=== PATIENT | female | born 1950 | race Caucasian/White ===

== ENCOUNTER → 2017-06-22 | Outpatient (CLI) | payer MEDICARE, OTHER ==
[~2017-06-22] MED LIST: ASPI-999 PO; CETI10TA20 PO
== END ==
LOC: RAD 06-16 10:31
PROVIDERS: ATTEND Obstetrics & Gynecology
DX: Z12.31 Encounter for screening mammogram for malignant neoplasm of breast (principal)
CPT/HCPCS: 77067

== ENCOUNTER → 2018-06-29 | Outpatient (CLI) | payer MEDICARE, OTHER ==
--- NOTE | 2018-07-01 19:15 | Diagnostic Imaging Report ---
The current study was also evaluated with a Computer Aided Detection (CAD) system. 3-D tomosynthesis was also performed and reviewed. INDICATION: Digital mammogram bilateral screening. This study was compared to the prior exams of 06/22/2017, 06/15/2016 and 05/13/2015. At this time, there are no current complaints. FINDINGS: The fibroglandular tissue in both breasts is heterogeneously dense. This does limit the sensitivity of this exam. Overall, there does not appear to have been any significant change when compared to the prior study. No primary or secondary sign of malignancy is noted. 3D tomographic images fail to show any sign of malignancy. IMPRESSION: There is no radiographic evidence for malignancy. ACR BI-RADS Category 1: Negative. Result letter will be mailed to the patient. Note: At least 10% of breast cancer is not imaged by mammography. Dictated by: Dictated on workstation # [id number]
== END ==
LOC: RAD 14:38
PROVIDERS: ATTEND Obstetrics & Gynecology
DX: Z12.31 Encounter for screening mammogram for malignant neoplasm of breast (principal)
CPT/HCPCS: 77067

== ENCOUNTER → 2018-06-30 | Outpatient (CLI) | payer MEDICARE, OTHER ==
--- NOTE | 2018-06-30 09:36 | Diagnostic Imaging Report ---
DEXA scan. INDICATION: Screening for osteoporosis. There are no prior studies available for comparison. FINDINGS: The bone mineral density of the hips and spine was measured. The T score for the spine is -2.2. The T score for the left hip is -2.0. These values do indicate osteopenia. However, the T score for the right hip is -2.7. This value falls within the range of osteoporosis. IMPRESSION: There is osteoporosis of the right hip and osteopenia of the left hip and spine. Dictated by: Dictated on workstation # [id number]
== END ==
LOC: RAD 08:11
PROVIDERS: ATTEND Obstetrics & Gynecology
DX: Z13.820 Encounter for screening for osteoporosis (principal); M81.0 Age-related osteoporosis without current pathological fracture; M85.89 Other specified disorders of bone density and structure, multiple sites
CPT/HCPCS: 77080

== ENCOUNTER → 2018-10-10 | Outpatient (CLI) | payer MEDICARE, OTHER ==
[~2018-10-10] MED LIST changes: +RT-ALBUTEROL SULF 2.5 MG/3 ML PRE-MIX VIAL INH ONE; +RT-ALBUTEROL SULF 2.5 MG/3 ML PRE-MIX VIAL ONE
--- NOTE | 2018-10-10 15:34 | Diagnostic Imaging Report ---
INDICATION: 40 pack year history of smoking. COMPARISON: None. TECHNIQUE: Routine low-dose noncontrast CT of the chest was performed per department screening protocol. FINDINGS: Several small micronodules are identified within the lateral segment of the right middle lobe. Largest of these measures approximately 5 mm in diameter (image 204, series 2). 4 mm juxtapleural micronodular density is also noted within the anterolateral margins of the right upper lobe (image 132, series 2). There is mild air trapping consistent with background of emphysematous disease. There is no focal consolidation, large effusion, nor pneumothorax. Evaluation of cardiomediastinal structures demonstrates normal heart size. There is moderate calcified aortic and coronary atherosclerosis. Note is also made of aneurysmal dilatation of the ascending thoracic aorta, as it measures approximately 4.1 cm in diameter. There is also focal hypodensity peripheral to the wall of the thoracic aorta laterally on the left at the aortic arch suspicious for possible pseudoaneurysm. It measures approximately 1.6 cm at its base (image 106, series 2). No pathologically enlarged or morphologically abnormal adenopathy is seen within the mediastinum, mason, nor axilla. Bony structures show no acute abnormalities. No lytic or blastic osseous lesions are seen. Sternotomy wires are noted. Included portions of the abdomen are unremarkable. IMPRESSION: 1. Multiple small micronodules within the right upper and right middle lobes, largest of which measures approximately 5 mm in diameter. Continued followup with annual low dose CT chest is recommended. 2. Background of mild emphysematous disease. 3. 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 Followup with postcontrast CTA chest is recommended for further characterization. LungRads category: 1-S Dictated by: Dictated on workstation # [id number]
== END ==
LOC: RT 12:55
PROVIDERS: ATTEND Nurse Practitioner Family
DX: J44.9 Chronic obstructive pulmonary disease, unspecified (principal); J30.9 Allergic rhinitis, unspecified; R06.02 Shortness of breath; Z87.891 Personal history of nicotine dependence
CPT/HCPCS: 94060; 94726; 94729

== ENCOUNTER → 2019-04-03 | Outpatient (CLI) | payer MEDICARE, OTHER ==
[~2019-04-03] MED LIST changes: +HOLD METFORMIN - RECEIVED CONTRAST 20 ML VIAL IV SCH; +IOHEXOL 350 MG/ML 100 ML (OMNIPAQUE 350) VIAL IV ONE; +NS 100 ML (IVPB) BAG IV ONE; -RT-ALBUTEROL SULF 2.5 MG/3 ML PRE-MIX VIAL INH ONE; -RT-ALBUTEROL SULF 2.5 MG/3 ML PRE-MIX VIAL ONE
[2019-04-03 11:50] LABS: BUN/CREATININE RATIO 11; CREATININE SERUM 0.82 MG/DL (0.60-1.30); GFR ESTIMATED > 60
--- NOTE | 2019-04-03 18:22 | Diagnostic Imaging Report ---
PROCEDURE: CT chest with contrast only. TECHNIQUE: Multiple contiguous axial images were obtained through the chest after administration of intravenous contrast. Auto Exposure Controls were utilized during the CT exam to meet ALARA standards for radiation dose reduction. DATE: April 03, 2019. COMPARISON: CT chest October 10, 2018. INDICATION: 68-year-old female, shortness of breath. History of COPD and asthma. Evaluation for thoracic aortic aneurysm. FINDINGS: There is tree-in-bud nodularity in the right middle lobe on axial image 41 and adjacent sequential images. This is present on October 10, 2018 and is essentially unchanged. There is no new or enlarging pulmonary nodule. There is no additional focal airspace consolidation. There is no pneumothorax. There is no pleural effusion. The central airways are patent. The aorta at the level of the aortic root measures up to approximately 3.9 x 3.4 cm in diameter. The proximal ascending thoracic aorta measures 3.5 x 3.7 cm in diameter. The distal ascending thoracic aorta measures approximately 3.7 x 3.4 cm in diameter. The proximal descending thoracic aorta measures 3.0 x 3.0 cm in diameter. The distal descending thoracic aorta measures 2.7 x 2.5 cm in diameter. There is no evidence of aortic dissection. There is no evidence of acute aortic injury. There are atherosclerotic calcifications. The celiac axis and superior mesenteric arteries are widely patent. The bilateral renal arteries are patent. The visualized segments of the abdominal aorta are unremarkable in caliber. There is no identified abnormally enlarged mediastinal, hilar, or axillary lymph node which meets CT size criteria for adenopathy. There are low-attenuation nodules in the right lobe of the thyroid measuring up to maximally 12 mm in size on axial image 12. The visualized segments of the upper abdomen are unremarkable in appearance. There are multilevel advanced degenerative changes of the spine. There are median sternotomy wires. There is partially imaged hardware at the level of the lower cervical spine. There is no identified acute bony abnormality. IMPRESSION: CT CHEST. 1. No identified acute cardiopulmonary abnormality. 2. Atherosclerotic disease with slight prominence of the thoracic aorta with measurements as above. Findings do not meet threshold criteria for diagnosis of aneurysm. No evidence of aortic dissection. 3. Stable tree-in-bud nodularity in the right middle lobe most likely relating to sequela of prior process spreading via endobronchial means which is most likely an infectious bronchiolitis or possibly aspiration. Dictated by: Dictated on workstation # [id number]
== END ==
LOC: RAD 11:20
PROVIDERS: ATTEND Nurse Practitioner Family
DX: J44.9 Chronic obstructive pulmonary disease, unspecified (principal); I70.0 Atherosclerosis of aorta; J30.9 Allergic rhinitis, unspecified; R91.1 Solitary pulmonary nodule; Z87.891 Personal history of nicotine dependence
CPT/HCPCS: 36415; 71260; 82565; 84520

== ENCOUNTER 2019-05-02 09:13 | Outpatient (CLI) | payer MEDICARE, OTHER ==
[~2019-05-02] VITALS: Ht 172.7 cm; Wt 61.5 kg
[~2019-05-02 09:13] MED LIST changes: -HOLD METFORMIN - RECEIVED CONTRAST 20 ML VIAL IV SCH; -IOHEXOL 350 MG/ML 100 ML (OMNIPAQUE 350) VIAL IV ONE; -NS 100 ML (IVPB) BAG IV ONE
[2019-05-02] MEDS ORDERED: ZOLP5TAB PO (12:25)
[2019-05-02] MEDS ORDERED: ESTR42.52 VG (12:25)
[2019-05-02] MEDS ORDERED: MONT10TA24 PO (12:25)
== END 2019-05-02 12:30 | disposition home or self-care (01) ==
LOC: PREOP 09:13
PROVIDERS: ATTEND Internal Medicine Critical Care Medicine
DX: Z01.818 Encounter for other preprocedural examination (principal)

== ENCOUNTER 2019-05-04 07:00 | Day surgery (SDC) | payer MEDICARE, OTHER ==
[~2019-05-04] VITALS: Ht 172.7 cm; Wt 61.5 kg
[2019-05-04] VITALS (19 sets, daily range): BP systolic 108–153; BP diastolic 55–94
[~2019-05-04 07:00] MED LIST changes: +ESTR42.52 VG; +MONT10TA24 PO; +NS IV 500 ML 500 ML ONE; +ZOLP5TAB PO
[2019-05-04] MEDS ORDERED: LIDOCAINE JELLY 2% 6 ML SYRINGE MM ONE (07:01)
[2019-05-04] MEDS ORDERED: LIDOCAINE PF 1% 2 ML VIAL IJ ONE (07:01)
[2019-05-04] MEDS ORDERED: LIDOCAINE PF 2% 5 ML (XYLOCAINE) VIAL INJ ONE (07:01)
[2019-05-04] MEDS ORDERED: NS IV 500 ML 500 ML IV PRN (07:05)
[2019-05-04] MEDS ORDERED: fentaNYL INJECTION 100 MCG/2 ML AMP IVP ONE (07:15)
[2019-05-04] MEDS ORDERED: MIDAZOLAM 2 MG/2 ML (VERSED) VIAL IVP ONE (07:15)
--- OUTSIDE RECORDS SUMMARY | 2019-05-04 07:20 | XMS REPORT | Continuity of Care Document ---
Author Organization Unknown Address Unknown Phone Unavailable Allergies Active Description Code Type Severity Reaction Onset Reported/Identified Relationship to Patient Clinical Status Yes NO KNOWN DRUG ALLERGIES UNKNOWN NO KNOWN DRUG ALLERG Yes NO KNOWN DRUG ALLERGIES UNKNOWN UNKNOWN Yes No Known Drug Allergies [id number] Drug Allergy Unknown N/A 05/02/2019 Medications Medication Packaging Start Date Stop Date Route Dosage Sig KETOROLAC VIAL INJ 30 MG/CC (TORADOL VIAL) MG 03/01/2019 03/01/2019 [id number] Problems Date Dx Coded Attending Type Code Diagnosis Diagnosed By 11/22/2009 Ot 721.0 12/13/2009 Ot 721.0 10/05/2014 ONEAL YORK MD Ot 722.4 CERVICAL DISC DEGEN 10/05/2014 ONEAL YORK MD Ot V58.69 OT MED,LT,CURRENT USE 11/14/2014 ONEAL YORK MD Ot 722.51 11/14/2014 ONEAL YORK MD, Ot V58.69 05/13/2015 Ot V76.12 05/13/2015 Ot V76.12 05/13/2015 Ot V76.12 05/13/2015 RENATA LIAO MD Ot 793.89 05/13/2015 RENATA LIAO MD Ot V76.12 05/13/2015 MAT DOOMER S Ot 401.9 05/13/2015 PARENETTA DO, OMER S Ot 427.31 05/13/2015 PARENETTA DO, OMER S Ot 441.2 05/13/2015 RENATA LIAO MD Ot 793.80 05/13/2015 RENATA LIAO MD Ot V76.12 05/13/2015 ONEAL YORK MD Ot 721.0 05/13/2015 ONEAL YORK MD Ot 721.2 05/13/2015 ONEAL YORK MD Ot 722.51 05/13/2015 ONEAL YORK MD Ot V58.69 05/28/2015 RENATA LIAO MD, Ot V76.12 06/04/2015 RENATA LIAO MD, Ot V76.12 06/15/2016 Ot V76.12 OTH SCREEN MAMMO- MALIGN NEOPLASM OF ISSA 06/15/2016 Ot V76.12 OTH SCREEN MAMMO- MALIGN NEOPLASM OF ISSA 06/15/2016 RENATA LIAO MD Ot 793.89 OTH (ABN) FINDINGS ON RADIOLOGICAL EXAMI 06/15/2016 RENATA LIAO MD, Ot V76.12 OTH SCREEN MAMMO-MALIGN NEOPLASM OF ISSA 06/15/2016 PAONI DO OMER S Ot 401.9 HYPERTENSION NOS 06/15/2016 PAONI DO OMER S Ot 427.31 ATRIAL FIBRILLATION 06/15/2016 PARENETTA DO OMER S Ot 441.2 THORACIC AORTIC ANEURYSM 06/15/2016 RENATA LIAO MD Ot 793.80 UNSPEC ABNORMAL MAMMOGRAM 06/15/2016 RENATA LIAO MD, Ot V76.12 OTH SCREEN MAMMO-MALIGN NEOPLASM OF ISSA 06/15/2016 ONEAL YORK MD Ot 721.0 CERVICAL SPONDYLOSIS 06/15/2016 ONEAL YORK MD Ot 721.2 THORACIC SPONDYLOSIS 06/15/2016 ONEAL YORK MD Ot 722.51 THORACIC DISC DEGEN 06/15/2016 ONEAL YORK MD Ot V58.69 OT MED,LT,CURRENT USE 06/15/2016 RENATA LIAO MD, Ot V76.12 OTH SCREEN MAMMO-MALIGN NEOPLASM OF ISSA 06/15/2016 RENATA LIAO MD, Ot V76.12 OTH SCREEN MAMMO-MALIGN NEOPLASM OF ISSA 06/15/2016 RENATA LIAO MD, Ot Z12.31 ENCNTR SCREEN MAMMOGRAM FOR MALIGNANT NE 06/16/2016 RENATA LIAO MD, Ot Z12.31 ENCNTR SCREEN MAMMOGRAM FOR MALIGNANT NE 06/16/2016 RENATA LIAO MD, Ot Z12.31 ENCNTR SCREEN MAMMOGRAM FOR MALIGNANT NE 07/08/2016 YANNI MD, RENATA G Ot Z12.31 ENCNTR SCREEN MAMMOGRAM FOR MALIGNANT NE 07/15/2016 YVETTE FAYE, LUKASZ Weems Ot Z01.818 ENCOUNTER FOR OTHER PREPROCEDURAL EXAMIN 07/15/2016 LUKASZ CRAWFORD MD Ot Z12.11 ENCOUNTER FOR SCREENING FOR MALIGNANT NE 07/17/2016 YVETTE FAYE, LUKASZ Weems Ot Z01.818 ENCOUNTER FOR OTHER PREPROCEDURAL EXAMIN 07/17/2016 LUKASZ CRAWFORD MD Ot Z12.11 ENCOUNTER FOR SCREENING FOR MALIGNANT NE 07/17/2016 Ot V76.12 OTH SCREEN MAMMO- MALIGN NEOPLASM OF ISSA 07/17/2016 Ot V76.12 OTH SCREEN MAMMO- MALIGN NEOPLASM OF ISSA 07/17/2016 RENATA LIAO MD Ot 793.89 OTH (ABN) FINDINGS ON RADIOLOGICAL EXAMI 07/17/2016 RENATA LIAO MD, Ot V76.12 OTH SCREEN MAMMO-MALIGN NEOPLASM OF ISSA 07/17/2016 PAOMER ANDERS DO S Ot 401.9 HYPERTENSION NOS 07/17/2016 OMER ZAMORA DO S Ot 427.31 ATRIAL FIBRILLATION 07/17/2016 OMER ZAMORA DO S Ot 441.2 THORACIC AORTIC ANEURYSM 07/17/2016 RENATA LIAO MD Ot 793.80 UNSPEC ABNORMAL MAMMOGRAM 07/17/2016 RENATA LIAO MD, Ot V76.12 OTH SCREEN MAMMO-MALIGN NEOPLASM OF ISSA 07/17/2016 ONEAL YORK MD Ot 721.0 CERVICAL SPONDYLOSIS 07/17/2016 ONEAL YORK MD Ot 721.2 THORACIC SPONDYLOSIS 07/17/2016 ONEAL YORK MD Ot 722.51 THORACIC DISC DEGEN 07/17/2016 ONEAL YORK MD Ot V58.69 OTH MED,LT,CURRENT USE 07/17/2016 RENATA LIAO MD, Ot V76.12 OTH SCREEN MAMMO-MALIGN NEOPLASM OF ISSA 07/17/2016 RENATA LIAO MD, Ot Z12.31 ENCNTR SCREEN MAMMOGRAM FOR MALIGNANT NE 07/17/2016 RENATA LIAO MD, Ot V76.12 OTH SCREEN MAMMO-MALIGN NEOPLASM OF ISSA 07/17/2016 RENATA LIAO MD, Ot Z12.31 ENCNTR SCREEN MAMMOGRAM FOR MALIGNANT NE 07/17/2016 YVETTE FAYE, LUKASZ Weems Ot K57.30 DVRTCLOS OF LG INT W/O PERFORATION OR AB 07/17/2016 LUKASZ CRAWFORD MD Ot Z12.11 ENCOUNTER FOR SCREENING FOR MALIGNANT NE 07/17/2016 YVETTE FAYE, LUKASZ Weems Ot Z86.010 PERSONAL HISTORY OF COLONIC POLYPS 07/20/2016 LUKASZ CRAWFORD MD Ot K57.30 DVRTCLOS OF LG INT W/O PERFORATION OR AB 07/20/2016 LUKASZ CRAWFORD MD Ot Z12.11 ENCOUNTER FOR SCREENING FOR MALIGNANT NE 07/20/2016 LUKASZ CRAWFORD MD Ot Z86.010 PERSONAL HISTORY OF COLONIC POLYPS 07/22/2016 LUKASZ CRAWFORD MD Ot K57.30 DVRTCLOS OF LG INT W/O PERFORATION OR AB 07/22/2016 LUKASZ CRAWFORD MD Ot Z12.11 ENCOUNTER FOR SCREENING FOR MALIGNANT NE 07/22/2016 LUKASZ CRAWFORD MD Ot Z86.010 PERSONAL HISTORY OF COLONIC POLYPS 06/08/2017 RENATA LIAO MD Ot Z12.31 ENCNTR SCREEN MAMMOGRAM FOR MALIGNANT NE 06/09/2017 RENATA LIAO MD Ot V76.12 OTH SCREEN MAMMO-MALIGN NEOPLASM OF ISSA 06/09/2017 RENATA LIAO MD Ot Z12.31 ENCNTR SCREEN MAMMOGRAM FOR MALIGNANT NE 06/09/2017 RENATA LIAO MD Ot Z12.31 ENCNTR SCREEN MAMMOGRAM FOR MALIGNANT NE 06/14/2017 Ot V76.12 OTH SCREEN MAMMO- MALIGN NEOPLASM OF ISSA 06/14/2017 RENATA LIAO MD Ot 793.89 OTH (ABN) FINDINGS ON RADIOLOGICAL EXAMI 06/14/2017 RENATA LIAO MD, Ot V76.12 OTH SCREEN MAMMO-MALIGN NEOPLASM OF ISSA 06/14/2017 PAONI DO, OMER S Ot 401.9 HYPERTENSION NOS 06/14/2017 PAONI DO OMER S Ot 427.31 ATRIAL FIBRILLATION 06/14/2017 PAONI DO OMER S Ot 441.2 THORACIC AORTIC ANEURYSM 06/14/2017 RENATA LIAO MD Ot 793.80 UNSPEC ABNORMAL MAMMOGRAM 06/14/2017 RENATA LIAO MD, Ot V76.12 OTH SCREEN MAMMO-MALIGN NEOPLASM OF ISSA 06/14/2017 ONEAL YORK MD Ot 721.0 CERVICAL SPONDYLOSIS 06/14/2017 ONEAL YORK MD Ot 721.2 THORACIC SPONDYLOSIS 06/14/2017 ONEAL YORK MD Ot 722.51 THORACIC DISC DEGEN 06/14/2017 ONEAL YORK MD Ot V58.69 OTH MED,LT,CURRENT USE 06/14/2017 RENATA LIAO MD, Ot V76.12 OTH SCREEN MAMMO-MALIGN NEOPLASM OF ISSA 06/14/2017 RENATA LIAO MD, Ot Z12.31 ENCNTR SCREEN MAMMOGRAM FOR MALIGNANT NE 06/14/2017 RENATA LIAO MD, Ot Z12.31 ENCNTR SCREEN MAMMOGRAM FOR MALIGNANT NE 06/16/2017 RENATA LIAO MD, Ot Z12.31 ENCNTR SCREEN MAMMOGRAM FOR MALIGNANT NE 06/22/2017 RENATA LIAO MD, Ot Z12.31 ENCNTR SCREEN MAMMOGRAM FOR MALIGNANT NE 06/22/2017 RENATA LIAO MD, Ot Z12.31 ENCNTR SCREEN MAMMOGRAM FOR MALIGNANT NE 07/15/2017 RENATA LIAO MD, Ot Z12.31 ENCNTR SCREEN MAMMOGRAM FOR MALIGNANT NE 06/28/2018 RENATA LIAO MD, Ot Z12.31 ENCNTR SCREEN MAMMOGRAM FOR MALIGNANT NE 06/28/2018 RENATA LIAO MD Ot 793.89 OT (ABN) FINDINGS ON RADIOLOGICAL EXAMI 06/28/2018 RENATA LIAO MD, Ot V76.12 OTH SCREEN MAMMO-MALIGN NEOPLASM OF ISSA 06/28/2018 PAONI OMER ALFARO S Ot 401.9 HYPERTENSION NOS 06/28/2018 OMER ZAMORA DO S Ot 427.31 ATRIAL FIBRILLATION 06/28/2018 OMER ZAMORA DO S Ot 441.2 THORACIC AORTIC ANEURYSM 06/28/2018 RENATA LIAO MD Ot 793.80 UNSPEC ABNORMAL MAMMOGRAM 06/28/2018 RENATA LIAO MD, Ot V76.12 OTH SCREEN MAMMO-MALIGN NEOPLASM OF ISSA 06/28/2018 ONEAL YORK MD Ot 721.0 CERVICAL SPONDYLOSIS 06/28/2018 ONEAL YORK MD Ot 721.2 THORACIC SPONDYLOSIS 06/28/2018 ONEAL YORK MD Ot 722.51 THORACIC DISC DEGEN 06/28/2018 ONEAL YORK MD Ot V58.69 OTH MED,LT,CURRENT USE 06/28/2018 RENATA LIAO MD, Ot V76.12 OTH SCREEN MAMMO-MALIGN NEOPLASM OF ISSA 06/28/2018 RENATA LIAO MD, Ot Z12.31 ENCNTR SCREEN MAMMOGRAM FOR MALIGNANT NE 06/28/2018 RENATA LIAO MD, Ot Z12.31 ENCNTR SCREEN MAMMOGRAM FOR MALIGNANT NE 06/28/2018 RENATA LIAO MD, Ot M81.0 AGE-RELATED OSTEOPOROSIS W/O CURRENT PAT 06/28/2018 RENATA LIAO MD, Ot Z12.31 ENCNTR SCREEN MAMMOGRAM FOR MALIGNANT NE 06/28/2018 RENATA LIAO MD, Ot M81.0 AGE-RELATED OSTEOPOROSIS W/O CURRENT PAT 07/01/2018 RENATA LIAO MD, Ot M81.0 AGE-RELATED OSTEOPOROSIS W/O CURRENT PAT 07/01/2018 RENATA LIAO MD, Ot M85.89 OT DISRD OF BONE DENSITY AND STRUCTURE, 07/01/2018 RENATA LIAO MD, Ot Z13.820 ENCOUNTER FOR SCREENING FOR OSTEOPOROSIS 07/06/2018 RENATA LIAO MD, Ot M81.0 AGE-RELATED OSTEOPOROSIS W/O CURRENT PAT 07/06/2018 RENATA LIAO MD, Ot M85.89 OTH DISRD OF BONE DENSITY AND STRUCTURE, 07/06/2018 RENATA LIAO MD, Ot Z13.820 ENCOUNTER FOR SCREENING FOR OSTEOPOROSIS 07/13/2018 Omer Zamora 733.0 OSTEOPOROSIS 07/13/2018 Omer Zamora M81.0 AGE-RELATED OSTEOPOROSIS WITHOUT CURRENT PATHOLOGICAL FRACTURE 07/13/2018 Paoni, Omer W 733.0 OSTEOPOROSIS 07/13/2018 EnocOmer anders W M81.0 AGE-RELATED OSTEOPOROSIS WITHOUT CURRENT PATHOLOGICAL FRACTURE 07/19/2018 RENATA LIAO MD, Ot Z12.31 ENCNTR SCREEN MAMMOGRAM FOR MALIGNANT NE 07/20/2018 RENATA LIAO MD, Ot M81.0 AGE-RELATED OSTEOPOROSIS W/O CURRENT PAT 07/20/2018 RENATA LIAO MD, Ot M85.89 OT DISRD OF BONE DENSITY AND STRUCTURE, 07/20/2018 RENATA LIAO MD, Ot Z13.820 ENCOUNTER FOR SCREENING FOR OSTEOPOROSIS 10/06/2018 RENATA LIAO MD, Ot Z12.31 ENCNTR SCREEN MAMMOGRAM FOR MALIGNANT NE 10/06/2018 RENATA LIAO MD, Ot Z12.31 ENCNTR SCREEN MAMMOGRAM FOR MALIGNANT NE 10/06/2018 RENATA LIAO MD, Ot M81.0 AGE-RELATED OSTEOPOROSIS W/O CURRENT PAT 10/06/2018 RENATA LIAO MD, Ot M85.89 OT DISRD OF BONE DENSITY AND STRUCTURE, 10/06/2018 RENATA LIAO MD, Ot Z13.820 ENCOUNTER FOR SCREENING FOR OSTEOPOROSIS 10/06/2018 MANJEET ERWIN APRN Ot Z87.891 PERSONAL HISTORY OF NICOTINE DEPENDENCE 10/07/2018 MANJEET ERWIN APRN Ot Z87.891 PERSONAL HISTORY OF NICOTINE DEPENDENCE 10/10/2018 MANJEET ERWIN APRN Ot Z87.891 PERSONAL HISTORY OF NICOTINE DEPENDENCE 10/13/2018 MANJEET ERWIN APRN Ot J30.9 ALLERGIC RHINITIS, UNSPECIFIED 10/13/2018 MANJEET ERWIN APRN Ot J44.9 CHRONIC OBSTRUCTIVE PULMONARY DISEASE, U 10/13/2018 MANJEET ERWIN APRN Ot R06.02 SHORTNESS OF BREATH 10/13/2018 MANJEET ERWIN APRN Ot Z87.891 PERSONAL HISTORY OF NICOTINE DEPENDENCE 10/31/2018 Benjamin Frazier W 491.20 OBSTRUCTIVE CHRONIC BRONCHITIS, WITHOUT EXACERBATION 10/31/2018 Benjamin Frazier W 786.09 OTHER DYSPNEA AND RESPIRATORY ABNORMALITY 10/31/2018 Benjamin Frazier W 793.11 SOLITARY PULMONARY NODULE 10/31/2018 Benjamin Frazier J44.9 CHRONIC OBSTRUCTIVE PULMONARY DISEASE, UNSPECIFIED 10/31/2018 Benjamin Frazier R06.00 DYSPNEA, UNSPECIFIED 10/31/2018 Benjamin Frazier R91.1 SOLITARY PULMONARY NODULE 11/02/2018 Benjamin Frazier 496 CHRONIC AIRWAY OBSTRUCTION, NOT ELSEWHERE CLASSIFIED 11/02/2018 Benjamin Frazier J44.9 CHRONIC OBSTRUCTIVE PULMONARY DISEASE, UNSPECIFIED 11/02/2018 Benjamin Frazier W 493 ASTHMA 11/02/2018 Benjamin Frazier W 496 CHRONIC AIRWAY OBSTRUCTION, NOT ELSEWHERE CLASSIFIED 11/02/2018 Benjamin Frazier J44.9 CHRONIC OBSTRUCTIVE PULMONARY DISEASE, UNSPECIFIED 11/02/2018 Benjamin Frazier J45.909 UNSPECIFIED ASTHMA, UNCOMPLICATED 11/09/2018 MANJEET ERWIN APRN Ot J30.9 ALLERGIC RHINITIS, UNSPECIFIED 11/09/2018 MANJEET ERWIN APRN Ot J44.9 CHRONIC OBSTRUCTIVE PULMONARY DISEASE, U 11/09/2018 MANJEET ERWIN APRN Ot R06.02 SHORTNESS OF BREATH 11/09/2018 MANJEET ERWIN APRN Ot Z87.891 PERSONAL HISTORY OF NICOTINE DEPENDENCE 01/09/2019 Benjamin Frazier 493 ASTHMA 01/09/2019 Benjamin Frazier 496 CHRONIC AIRWAY OBSTRUCTION, NOT ELSEWHERE CLASSIFIED 01/09/2019 Benjamin Frazier J44.9 CHRONIC OBSTRUCTIVE PULMONARY DISEASE, UNSPECIFIED 01/09/2019 Benjamin Frazier J45.909 UNSPECIFIED ASTHMA, UNCOMPLICATED 03/01/2019 Ion Santa W 346.90 MIGRAINE, UNSPECIFIED, WITHOUT MENTION OF INTRACTABLE MIGRAINE, WITHOUT MENTION OF STATUS MIGRAINOSUS 03/01/2019 Ion Santa G43.909 MIGRAINE, UNSP, NOT INTRACTABLE, WITHOUT STATUS MIGRAINOSUS 04/04/2019 MANJEET ERWIN APRN Ot I70.0 ATHEROSCLEROSIS OF AORTA 04/04/2019 MANJEET ERWIN [employer] Ot J30.9 ALLERGIC RHINITIS, UNSPECIFIED 04/04/2019 MANJEET ERWIN [employer] Ot J44.9 CHRONIC OBSTRUCTIVE PULMONARY DISEASE, U 04/04/2019 MANJEET ERWIN APRN Ot R91.1 SOLITARY PULMONARY NODULE 04/04/2019 MANJEET ERWIN APRN Ot Z87.891 PERSONAL HISTORY OF NICOTINE DEPENDENCE 04/27/2019 MANJEET ERWIN APRN Ot I70.0 ATHEROSCLEROSIS OF AORTA 04/27/2019 MANJEET ERWIN APRN Ot J30.9 ALLERGIC RHINITIS, UNSPECIFIED 04/27/2019 MANJEET ERWIN APRN Ot J44.9 CHRONIC OBSTRUCTIVE PULMONARY DISEASE, U 04/27/2019 MANJEET ERWIN APRN Ot R91.1 SOLITARY PULMONARY NODULE 04/27/2019 MANJEET ERWIN APRN Ot Z87.891 PERSONAL HISTORY OF NICOTINE DEPENDENCE 05/02/2019 EDIS HART DO Ot Z01.818 ENCOUNTER FOR OTHER PREPROCEDURAL EXAMIN Procedures There is no data. Results Test Result Range Pulmonary Function Hemoglobin - 03/03/17 11:56 Hgb 15.0 g/dL 13.0-15.0 Vitamin D, 25 OH - 07/13/18 08:30 Vitamin D, 25 OH 24.10 ng/mL 25.00-100.00 Comprehensive Metabolic Panel - 03/01/19 10:35 Albumin 4.4 g/dL 3.6-5.1 ALP 67 U/L 35-130 ALT 15 U/L 6-45 Anion Gap 14 6-14 AST 20 U/L 2-40 BUN 9 mg/dL 5-25 Calcium 9.7 mg/dL 8.3-10.4 Chloride 104 mmol/L 95-114 CO2 25 mEq/L 22-33 Creat 0.79 mg/dL 0.50-1.50 eGFR 72 mL/min/1.73m2 >59 Globulin 3.0 g/dL 2.3-3.5 Glucose 105 mg/dL 70-110 Osmo 286 280-295 Potassium 4.1 mmol/L 3.5-5.3 Sodium 139 mmol/L 134-148 TBil 0.7 mg/dL 0.2-1.2 TP 7.4 g/dL 6.0-8.3 Urinalysis - 03/01/19 11:40 Icotest N/A Negative Urine Volume Urine Volume Sufficient (10mL) Urine Yeast No Yeast present Urine-Appearance Clear Clear Urine-Bacteria Trace Urine-Bilirubin Negative Negative Urine-Blood Trace-lysed Negative Urine-Color Yellow Colorless-Lt. Yellow Urine-Epithelial Cells 0-5/HPF Urine-Glucose Negative Negative Urine-Ketones Negative Negative Urine-Leukocytes 1+ Negative Urine-Mucus 1+ Urine-Nitrite Negative Negative Urine-Other Urine Saved if Culture Needed (48hrs from time of collection) Urine-pH 7.0 5-8.5 Urine-Protein Negative Negative Urine-RBC Negative Urine-Specific [place] 1.010 1.000-1.030 Urine-WBC Rare/HPF Urobilinogen 0.2 E.U./dL 0.2-1.0 Surgical Pathology - 03/28/19 11:46 Surg Path Sent to [facility] 234 BEDS AT [facility] Pathology Encounters ACCT No. Visit Date/Time Discharge Status Pt. Type Provider Facility Loc./Unit Complaint [id number] 03/28/2019 11:45:00 03/28/2019 23:59:00 DIS Outpatient Omer Zamora [id number] 03/01/2019 09:51:00 03/01/2019 12:10:00 [id number] 11/02/2018 12:33:00 01/09/2019 16:00:00 DIS Outpatient Benjamin Frazier [id number] 10/31/2018 13:41:00 10/31/2018 23:59:00 DIS Outpatient Benjamin Frazier [id number] 07/13/2018 08:22:00 07/13/2018 23:59:00 DIS Outpatient Omer Zamora [id number] 03/03/2017 11:54:00 03/03/2017 23:59:00 DIS Outpatient Omer Zamora [id number] 02/23/2017 10:01:00 02/23/2017 23:59:00 DIS Outpatient Omer Zamora [id number] 03/01/2019 10:44:50 Document Registration [id number] 05/02/2019 09:13:00 05/02/2019 12:30:00 DIS Outpatient EDIS HART DO [facility] PREOP LUNG NODULE,NONSPECIFIC ABNORMAL FINDING OF LUNG [id number] 04/03/2019 11:20:00 04/03/2019 23:59:59 CLS Outpatient MANJEET ERWIN APRN [facility] RAD ALLERGIC RHINITIS,SOB,COPD [id number] 10/17/2018 15:04:00 10/17/2018 23:59:59 CLS Preadmit MANJEET ERWIN APRN [facility] RT COPD,LUNG NODULE,SOB [id number] 10/10/2018 12:55:00 10/10/2018 23:59:59 CLS Outpatient MANJEET ERWIN APRN [facility] RT COPD,SMOKING HX,SOB [id number] 09/06/2018 16:26:00 09/06/2018 23:59:59 CLS Preadmit MANJEET ERWIN APRN [facility] RT SOB,COPD [id number] 06/30/2018 08:11:00 06/30/2018 23:59:59 CLS Outpatient RENATA LIAO MD [facility] RAD OSTEOPOROSIS [id number] 06/29/2018 14:38:00 06/29/2018 23:59:59 CLS Outpatient RENATA LIAO MD [facility] RAD ROUTINE [id number] 06/28/2018 10:50:00 06/28/2018 23:59:59 CLS Preadmit RENATA LIAO MD [facility] RAD OSTEOPOROSIS [id number] 06/22/2017 10:30:00 06/22/2017 23:59:59 CLS Outpatient RENATA LIAO MD [facility] RAD SCREENING [id number] 07/17/2016 10:28:00 07/17/2016 12:30:00 DIS Outpatient LUKASZ CRAWFORD MD [facility] SDC SCREENING [id number] 07/15/2016 06:10:00 07/15/2016 16:13:00 DIS Outpatient LUKASZ CRAWFORD MD [facility] PREOP SCREENING [id number] 06/15/2016 10:32:00 06/15/2016 23:59:59 CLS Outpatient RENATA LIAO MD [facility] RAD SCREENING [id number] 05/13/2015 09:39:00 05/13/2015 23:59:59 CLS Outpatient RENATA LIAO MD [facility] RAD SCREENING [id number] 10/26/2014 08:37:00 10/26/2014 23:59:59 CLS Outpatient ONEAL YORK MD [facility] CARD DDD-T S/P [id number] 10/05/2014 07:47:00 10/05/2014 09:29:00 DIS Outpatient ONEAL YORK MD [facility] CARD DDD-CERVICAL [id number] 05/31/2014 14:50:00 05/31/2014 23:59:59 CLS Outpatient ONEAL YORK MD [facility] RAD CERVICAL PAIN , THORAIC SPINE PAIN [id number] 05/10/2014 09:31:00 05/10/2014 23:59:59 CLS Outpatient RENATA LIAO MD [facility] RAD SCREENING [id number] 10/10/2013 11:25:00 10/10/2013 23:59:59 CLS Outpatient RENATA LIAO MD [facility] RAD SIX MONTH F/U [id number] 07/12/2013 10:15:00 07/12/2013 23:59:59 CLS Outpatient OMER ZAMORA DO [facility] HH A-FIB,HTN,THORACIC AORTIC ANEURYSM [id number] 03/30/2013 14:25:00 03/30/2013 23:59:59 CLS Outpatient RENATA LIAO MD [facility] RAD SCREENING [id number] 05/04/2019 07:30:00 PEN Preadmit EDIS HART DO [facility] ENDO COPD, SOB [id number] 05/01/2019 11:09:00 PEN Preadmit MANJEET ERWIN APRN [facility] RAD SOB [id number] 05/13/2015 09:32:00 Document Registration [id number] 05/13/2015 09:32:00 Document Registration [id number] 03/14/2012 08:51:00 Document Registration [id number] 03/20/2010 08:50:00 Document Registration [id number] 11/22/2009 07:30:00 Document Registration
[2019-05-04] MEDS ORDERED: fentaNYL INJECTION 100 MCG/2 ML AMP ONE ×2 (07:22→07:23)
[2019-05-04] MEDS ORDERED: MIDAZOLAM 2 MG/2 ML (VERSED) VIAL ONE ×4 (07:23)
--- NOTE | 2019-05-04 07:48 | Pre-Op Note & Conscious Sedat ---
Pre-Operative Progress Note H&P Reviewed The H&P was reviewed, patient examined and no changes noted. Date H&P Reviewed: May 04, 2019 Time H&P Reviewed: 07:48 Conscious Sedation Pre-Proced Time 07:48 ASA Score 3 For ASA 3 and 4: Consider anesthesia and medical clearance. Also, for patients with a history of failed moderate sedation consider anesthesia. Airway Lungs Heart ASA score ASA 1: a normal healthy patient ASA 2: a patient with a mild systemic disease (mid diabetes, controlled hypertension, obesity ASA 3: a patient with a severe systemic disease that limits activity (angina, COPD, prior Myocardial infarction) ASA 4: a patient with an incapacitating disease that is a constant threat to life (CHF, renal failure) ASA 5: a moribund patient not expected to survive 24 hrs. (ruptured aneurysm) ASA 6: a declared brain- patient whose organs are being harvested. For emergent operations, add the letter E after the classification Mallampati Classification Grade 3 Sedation Plan Analgesia, Amnesia, Plan communicated to team members, Discussed options with patient/fam, Discussed risks with patient/fam The patient is an appropriate candidate to undergo the planned procedure, sedation, and anesthesia. The patient immediately re-assessed prior to indication. EDIS HART DO May 04, 2019 07:48
--- NOTE | 2019-05-04 07:48 | Progress Note-Pre Operative ---
Pre-Operative Progress Note H&P Reviewed The H&P was reviewed, patient examined and no changes noted. Time Seen by Provider: 08:00 Date H&P Reviewed: May 04, 2019 Time H&P Reviewed: 07:48 Pre-Operative Diagnosis: EDIS Dixon DO May 04, 2019 07:48
--- NOTE | 2019-05-04 07:51 | Pulmonary Procedures ---
Pulmonary Procedures Date of Procedure Date of Service: May 04, 2019 Bronch Bronchoscopy with fluoroscopy bronchoalveolar lavage (BAL), transbronchial washes and, brushes. Preop DX RML infiltrate Postop DX: same Complications: none After informed consent obtained and formal time out pt was sedated using Fentanyl and Versed. Bronchoscope was advanced through the nare and vocal cords. 1% lidocaine was used to anesthetize vocal cords, epiglottis, kelley, and left/right main stem bronchus. An anatomical tour was undertaken down to the segmental bronchi bilaterally. No endobronchial lesions noted. From the RML a bronchoalveolar lavage (BAL), transbronchial washes and, brushes were obtained. Pt tolerated procedure well. No complications noted. Stat CXR is pending. EDIS HART DO May 04, 2019 07:51
--- NOTE | 2019-05-04 09:06 | Diagnostic Imaging Report ---
INDICATION: Status post bronchoscopy. TIME OF EXAM: 8:52 AM No prior chest radiographs are available for comparison. FINDINGS: Changes of median sternotomy are noted. Heart size is normal. Lungs are clear. There is no infiltrate. No pneumothorax is seen status post bronchoscopy. IMPRESSION: No evidence of pneumothorax. Dictated by: Dictated on workstation # [id number]
--- NOTE | 2019-05-04 09:08 | Diagnostic Imaging Report ---
Indication: Fluoroscopy during bronchoscopy. Fluoroscopy was provided during bronchoscopy. 34 seconds of fluoroscopy was utilized. Impression: Fluoroscopy for bronchoscopy. Dictated by: Dictated on workstation # [id number]
[2019-05-04 10:54] LABS: BF OTHER CELLS 18 %; BODY FLUID APPEARENCE MOD CLDY; BODY FLUID COLOR COLORLESS; BODY FLUID SOURCE BRONCH; LYMPHOCYTES,BODY FLUID 9 %
== END 2019-05-04 09:40 | disposition home or self-care (01) ==
LOC: ENDO 07:00
PROVIDERS: ATTEND Internal Medicine Critical Care Medicine
DX: J40 Bronchitis, not specified as acute or chronic (principal)
CPT/HCPCS: 71045; 87015; 87070; 87077; 87101; 87116; 87186; 87205; 87206; 88112; 88305; 88312; 89051; 94640

== ENCOUNTER → 2019-07-04 | Outpatient (CLI) | payer MEDICARE, OTHER ==
[~2019-07-04] MED LIST changes: +HOLD METFORMIN - RECEIVED CONTRAST 20 ML VIAL IV SCH; +IOHEXOL 350 MG/ML 100 ML (OMNIPAQUE 350) VIAL IV ONE; +NS 100 ML (IVPB) BAG IV ONE; -NS IV 500 ML 500 ML ONE
[2019-07-04 10:50] LABS: BUN/CREATININE RATIO 11; GFR ESTIMATED > 60
--- NOTE | 2019-07-04 12:27 | Diagnostic Imaging Report ---
EXAMINATION: CT Chest with intravenous contrast. TECHNIQUE: Multiple contiguous axial images were obtained through the chest after the uneventful administration of intravenous contrast. All CT scans use one or more of the following dose optimizing techniques: automated exposure control, MA and/or KvP adjustment based on a patient size and exam type, or iterative reconstruction. HISTORY: Shortness of breath FINDINGS: Comparison is 04/03/2019. There are persistent tree-in-bud nodules in the right middle lobe which have mildly increased compared to the prior exam. There is no edema or pneumonia. No pleural effusion or pneumothorax. There is some mucus in the trachea and in the left mainstem bronchus. Heart size is normal. There is mild dilation of the aortic root measuring up to 4.0 cm. The aortic valve is trileaflet. There is no central pulmonary embolism. No axillary, supraclavicular or mediastinal lymphadenopathy. There is atherosclerosis of the aortic arch and coronary arteries. There is been a median sternotomy. There are multiple small right-sided thyroid nodules all measuring less than a centimeter. There is no axillary, supraclavicular or mediastinal lymphadenopathy. Limited views of the upper abdomen reveal a cyst in segment 2 of the liver. There are no suspicious osseous lesions. IMPRESSION: 1. Increasing tree-in-bud nodules in the right middle lobe, given their location and chronicity consideration to an atypical mycobacterial infection should be given. 2. Unchanged mild dilation of the aortic root measuring up to 4.0 cm. Dictated by: Dictated on workstation # [id number]
== END ==
LOC: RAD 10:21
PROVIDERS: ATTEND Nurse Practitioner Family
DX: J44.9 Chronic obstructive pulmonary disease, unspecified (principal); I77.819 Aortic ectasia, unspecified site; E04.2 Nontoxic multinodular goiter; J30.9 Allergic rhinitis, unspecified; R91.1 Solitary pulmonary nodule; Z87.891 Personal history of nicotine dependence; Z98.890 Other specified postprocedural states
CPT/HCPCS: 36415; 71260; 82565; 84520

== ENCOUNTER → 2019-07-04 | Outpatient (CLI) | payer MEDICARE, OTHER ==
[~2019-07-04] MED LIST changes: -HOLD METFORMIN - RECEIVED CONTRAST 20 ML VIAL IV SCH; -IOHEXOL 350 MG/ML 100 ML (OMNIPAQUE 350) VIAL IV ONE; -NS 100 ML (IVPB) BAG IV ONE
--- NOTE | 2019-07-04 20:34 | Diagnostic Imaging Report ---
EXAM: Digital mammogram bilateral screening COMPARISON: This study was compared to the prior exams of 06/29/2019, 06/22/2017 and 06/15/2016. There are no current complaints. FINDINGS: The fibroglandular tissue in both breasts is heterogeneously dense. This does limit the sensitivity of this exam. In the lateral aspect of the right breast at the 10 o'clock position approximately 3.8 cm from the nipple there is a group of microcalcifications. These calcifications have been present on previous exams dating back to 05/10/2014 and do not appear to have changed significantly on the MLO projection. They do seem somewhat more conspicuous on the CC exam of this study. I do suspect that these calcifications are benign but I would recommend that a compression/magnification view be obtained in the ML and CC projections to better characterize these calcifications. The overall appearance of the breasts has not changed significantly otherwise. There is no primary or secondary sign of malignancy noted. IMPRESSION: Additional mammographic views of the right breast would be recommended for further study. ACR BI-RADS Category 0: Incomplete. (Needs additional imaging evaluation). Result letter will be mailed to the patient. Note: At least 10% of breast cancer is not imaged by mammography. Dictated by: Dictated on workstation # [id number]
== END ==
LOC: RAD 10:43
PROVIDERS: ATTEND Obstetrics & Gynecology
DX: Z12.31 Encounter for screening mammogram for malignant neoplasm of breast (principal)
CPT/HCPCS: 77067

== ENCOUNTER → 2019-07-19 | Outpatient (CLI) | payer MEDICARE, OTHER ==
--- NOTE | 2019-07-19 09:37 | Diagnostic Imaging Report ---
INDICATION: Right breast calcifications. Patient presents for additional views. COMPARISON: Correlation is made with prior mammograms dating back to 2013. TECHNIQUE: Unilateral right 2D and 3D diagnostic mammography was performed. This included magnification CC and ML views as well as a conventional 90 degree lateral view. FINDINGS: The calcifications in the upper and outer aspect of the right breast at anterior depth are again noted. These have been present for several years. These do show some curvilinear arrangement peripherally and may represent calcifications within an oil cyst. These show no significant change when compared with studies dating back several years and are likely benign. No mass is seen. IMPRESSION: Benign appearing calcifications in the upper outer right breast have been present for several years and may be calcifications within an oil cyst. The patient may return to routine annual mammography. ACR BI-RADS Category 2: Benign findings. Result letter will be mailed to the patient. Note: At least 10% of breast cancer is not imaged by mammography. Dictated by: Dictated on workstation # [id number]
== END ==
LOC: RAD 09:08
PROVIDERS: ATTEND Obstetrics & Gynecology
DX: R92.8 Other abnormal and inconclusive findings on diagnostic imaging of breast (principal); R92.1 Mammographic calcification found on diagnostic imaging of breast

== ENCOUNTER → 2020-02-06 | Outpatient (CLI) | payer MEDICARE, OTHER ==
[~2020-02-06] MED LIST changes: -CETI10TA20 PO; +CETI10TA21 PO; +HOLD METFORMIN - RECEIVED CONTRAST 20 ML VIAL IV SCH; +IOHEXOL 350 MG/ML 100 ML (OMNIPAQUE 350) VIAL IV ONE; -MONT10TA24 PO; +MONT10TA26 PO; +NS 100 ML (IVPB) BAG IV ONE
[2020-02-06 10:14] LABS: BUN/CREATININE RATIO 12; CREATININE SERUM 0.83 MG/DL (0.60-1.30); GFR ESTIMATED > 60
--- NOTE | 2020-02-06 11:26 | Diagnostic Imaging Report ---
PROCEDURE: CT chest with contrast only. TECHNIQUE: Multiple contiguous axial images were obtained through the chest after administration of intravenous contrast. Auto Exposure Controls were utilized during the CT exam to meet ALARA standards for radiation dose reduction. INDICATION: Shortness of breath, history of smoking. The previous CT chest exam of 07/04/2019 noted increasing tree-in-bud nodules in the right middle lobe and raise a question of an atypical mycobacterial infection. On this exam, the tree-in-bud parenchymal opacities in the right middle lobe seen previously have essentially resolved. Faint groundglass densities have developed along the posterior aspect of the right lung base, however. These are nonspecific but could be related to mild inflammatory/infectious process. The right lung is otherwise generally clear as is the left lung. The previous exam did note that the aortic root and ascending aorta are dilated. On this exam, the aorta is stable in size measuring approximately 4 cm in maximum diameter. There is no defect within the pulmonary arteries to indicate a pulmonary embolus. The heart size is at the upper limits of normal but stable when compared to the prior exam. Coronary calcifications are again noted. There are sternal wires and surgical clips evident. There is no mediastinal or hilar adenopathy. The thyroid gland seems similar to the prior study. There is no obvious breast mass. The sections through the upper abdomen failed to show any sign of an acute abnormality. The bone windows are unremarkable for fracture or for destructive lesion. IMPRESSION: 1. There are mixed results. The tree-in-bud opacities along the periphery of the right middle lobe seen previously have essentially resolved. However, there are now faint groundglass densities along the posterior aspect of the right lung base. These findings are nonspecific but may be related to mild inflammatory/infectious process. 2. There is no acute cardiopulmonary abnormality noted otherwise. 3. The ascending aorta is borderline dilated but stable when compared to the prior exam. Dictated by: Dictated on workstation # [id number]
== END ==
LOC: RAD 09:39
PROVIDERS: ATTEND Nurse Practitioner Family
DX: J44.9 Chronic obstructive pulmonary disease, unspecified (principal); J30.9 Allergic rhinitis, unspecified; R06.00 Dyspnea, unspecified; Z87.891 Personal history of nicotine dependence
CPT/HCPCS: 36415; 71260; 82565; 84520

== ENCOUNTER → 2020-05-31 | Outpatient (CLI) | payer MEDICARE, OTHER ==
[~2020-05-31] MED LIST changes: -HOLD METFORMIN - RECEIVED CONTRAST 20 ML VIAL IV SCH; -IOHEXOL 350 MG/ML 100 ML (OMNIPAQUE 350) VIAL IV ONE; -NS 100 ML (IVPB) BAG IV ONE
--- NOTE | 2020-05-31 13:42 | Diagnostic Imaging Report ---
EXAMINATION: CT Chest without contrast. TECHNIQUE: Multiple contiguous axial images were obtained through the chest without the use of intravenous contrast. All CT scans use one or more of the following dose optimizing techniques: automated exposure control, MA and/or KvP adjustment based on a patient size and exam type, or iterative reconstruction. HISTORY: Cough, COPD. COMPARISON: 02/06/2020. FINDINGS: Right middle lobe and lingular tree-in-bud nodules are seen and appears similar to prior exam. No pleural effusion. No pneumothorax. There is no edema. There is no axillary or supraclavicular lymphadenopathy. There is no mediastinal lymphadenopathy. Heart size is normal. There are mild coronary artery calcifications. No pericardial effusion. There is a 4.1 cm ascending aortic aneurysm which is unchanged. Contour abnormality in the aortic arch may represent a small penetrating atherosclerotic ulcer and is unchanged from prior exam. There has been a median sternotomy. A cannulation site is seen in the ascending aorta. Limited views of the upper abdomen are unremarkable. There are no suspicious osseous lesions. IMPRESSION: 1. 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 2. Stable ascending aortic aneurysm likely old penetrating atherosclerotic ulcer of the arch. Dictated by: Dictated on workstation # [id number]
== END ==
LOC: RAD 12:45
PROVIDERS: ATTEND Nurse Practitioner Family
DX: J30.9 Allergic rhinitis, unspecified (principal); I71.2 Thoracic aortic aneurysm, without rupture; J44.9 Chronic obstructive pulmonary disease, unspecified; R91.8 Other nonspecific abnormal finding of lung field; Z98.890 Other specified postprocedural states; Z87.891 Personal history of nicotine dependence
CPT/HCPCS: 71250

== ENCOUNTER → 2020-07-12 | Outpatient (CLI) | payer MEDICARE, OTHER ==
[~2020-07-12] MED LIST changes: -CETI10TA21 PO; +CETI10TA49 PO
--- NOTE | 2020-07-12 16:05 | Diagnostic Imaging Report ---
INDICATION: Routine screening. COMPARISON is made with prior mammograms of 07/04/2019 and 06/29/2018. 2-D and 3-D bilateral screening mammography was performed with CAD. Both breasts are heterogeneously dense, limiting the sensitivity of mammography. Benign calcifications in both breasts appear stable. No mass or malignant appearing microcalcifications are seen. Axillae are unremarkable. IMPRESSION: BI-RADS Category 2. No mammographic features suspicious for malignancy are identified. ACR BI-RADS Category 2: Benign findings. Result letter will be mailed to the patient. Note: At least 10% of breast cancer is not imaged by mammography. Dictated by: Dictated on workstation # [id number]
== END ==
LOC: RAD 14:20
PROVIDERS: ATTEND Obstetrics & Gynecology
DX: Z12.31 Encounter for screening mammogram for malignant neoplasm of breast (principal)
CPT/HCPCS: 77063; 77067

== ENCOUNTER 2021-02-12 16:43 | Observation (INO) | payer MEDICARE, OTHER ==
[~2021-02-12] VITALS: Ht 170.2 cm; Wt 59.0 kg
[~2021-02-12 16:43] MED LIST changes: -MONT10TA26 PO; +MONT10TA32 PO
[2021-02-12] MEDS ORDERED: HYDROcodone/APAP 5 MG/325 MG (LORTAB) TAB PO PRN (17:15)
[2021-02-12] MEDS ORDERED: ONDANSETRON 4 MG/2 ML (SDV) Z0FRAN IVP PRN (17:15)
[2021-02-12] MEDS ORDERED: diphenhydrAMINE 25 MG TAB (BENADRYL) PO PRN (17:15)
[2021-02-12] MEDS ORDERED: NS IV 1000 ML 1,000 ML IV SCH (17:15)
[2021-02-12] MEDS ORDERED: dilTIAZem DRIP PRE-MIX 125 ML IV SCH (17:15)
[2021-02-12] MEDS ORDERED: ENOXAPARIN 100 MG/1 ML (LOVENOX) SYR SC SCH (17:15)
[2021-02-12] MEDS ORDERED: MELATONIN 3 MG TABLET PO PRN (17:15)
[2021-02-12] MEDS ORDERED: LOPERAMIDE 2 MG (IMODIUM) TABLET PO PRN (17:15)
[2021-02-12] MEDS ORDERED: ACETAMINOPHEN 500 MG TAB (TYLENOL) PO PRN (17:15)
[2021-02-12] MEDS ORDERED: morphine INJ 10 MG/ML 1ML (SYR OR VIAL) IVP PRN (17:15)
[2021-02-12] MEDS ORDERED: ALPRAZolam 0.25 MG (XANAX) TAB PO PRN (17:15)
[2021-02-12] MEDS ORDERED: CALCIUM CARBONATE 500 MG (TUMS) TAB.CHEW PO PRN (17:15)
[2021-02-12] MEDS ORDERED: DOCUSATE SODIUM 100 MG (COLACE) CAP PO PRN (17:15)
[2021-02-12] MEDS ORDERED: HEParin 1000 UNIT/ML (10ML VIAL) FOR BOLUS IV SCH ×2 (17:45→19:30)
[2021-02-12] MEDS ORDERED: ACETAMINOPHEN 325 MG TABLET PO PRN (19:30)
[2021-02-12] MEDS ORDERED: morphine INJ 4 MG/ML 1 ML (VIAL/SYRINGE) IV PRN (19:30)
[2021-02-12] MEDS ORDERED: HEParin DRIP 25000 UNIT/500ML 500 ML IV SCH (19:30)
[2021-02-12 19:42] LABS: BASOPHILS # (AUTO) 0.1 10^3/uL (0.0-0.1); BASOPHILS % (AUTO) 1 % (0-10); EOSINOPHILS # (AUTO) 0.2 10^3/uL (0.0-0.3); EOSINOPHILS % (AUTO) 3 % (0-10); HEMATOCRIT 45 % (35-52); HEMOGLOBIN 14.7 g/dL (11.5-16.0); LYMPHOCYTES % (AUTO) 25 % (12-44); MEAN CORPUSCULAR HEMOGLOBIN 32 pg (25-34); MEAN CORPUSCULAR HGB CONC 33 g/dL (32-36); MEAN CORPUSCULAR VOLUME 97 fL (80-99); MEAN PLATELET VOLUME 10.9 fL (9.0-12.2); MONOCYTES # (AUTO) 0.6 10^3/uL (0.0-1.0); MONOCYTES % (AUTO) 7 % (0-12); NEUTROPHILS # (AUTO) 4.9 10^3/uL (1.8-7.8); NEUTROPHILS % (AUTO) 64 % (42-75); PLATELET COUNT 181 10^3/uL (130-400); WHITE BLOOD COUNT 7.8 10^3/uL (4.3-11.0)
--- NOTE | 2021-02-12 19:42 | Diagnostic Imaging Report ---
INDICATION: Dyspnea. Atrial fibrillation. COMPARISON: 05/04/2019 FINDINGS: Single frontal radiographic view of the chest was obtained and demonstrates moderate cardiomegaly and mild pulmonary vascular congestion. Bharat B-lines are also noted. There is no large effusion or pneumothorax. No focal consolidation is seen. Sternotomy wires noted. Osseous structures show no gross acute abnormalities. IMPRESSION:. Moderate cardiomegaly with underlying pulmonary vascular congestion. Dictated by: Dictated on workstation # [id number]
[2021-02-12 19:51] LABS: ALBUMIN 3.7 GM/DL (3.2-4.5)
[2021-02-12 19:52] LABS: CHLORIDE 110 MMOL/L (98-107); POTASSIUM 4.3 MMOL/L (3.6-5.0); SODIUM 141 MMOL/L (135-145)
[2021-02-12 19:53] LABS: CALCIUM 8.9 MG/DL (8.5-10.1)
[2021-02-12 19:54] LABS: GLUCOSE 115 MG/DL (70-105); TOTAL PROTEIN 6.2 GM/DL (6.4-8.2)
[2021-02-12 19:55] LABS: CARBON DIOXIDE 19 MMOL/L (21-32)
[2021-02-12 19:57] LABS: ALKALINE PHOSPHATASE 119 U/L (40-136)
[2021-02-12 19:58] LABS: CREATININE SERUM 0.76 MG/DL (0.60-1.30); GFR ESTIMATED > 60
[2021-02-12 19:59] LABS: BUN/CREATININE RATIO 11
[2021-02-12 20:01] LABS: ALANINE AMINOTRANSFERASE 64 U/L (0-55)
[2021-02-12 20:03] LABS: INR 1.1 (0.8-1.4); PROTHROMBIN TIME PATIENT 15.1 SEC (12.2-14.7)
--- NOTE | 2021-02-12 20:04 | History & Physical ---
History of Present Illness HPI/Chief Complaint CC: New onset atrial tachycardia presumed atrial flutter HPI: This is a 70yoWF clinic patient of Dr Zamora, Dr Carrion, and Dr Up who has a h/o COPD previous smoker quit 12 years ago who presents to the ICU after transferred from [facility] for higher level of care Cardiology with Dr Bhat due to new onset atrial tachycardia presumed atrial flutter. Patient has a h/o aortic arch repair but has had no Cardiology consultations or cardiac issues. She reports she has had to use her rescue inhaler several times a day the past 2 weeks (with previous no use the past many years) and when she was picking up sticks today in the yard her heart was beating so hard she had to come to the ER. No chest pain. Cardizem drip initiated along with Heparin drip. ECHO done at [facility] revealing moderate MR and EF 40-50%. Source: patient, RN/MD Exam Limitations: no limitations Date Seen 02/12/21 Time Seen by a Provider: 18:00 Attending Physician Brenda Morel DO PCP Omer Zamora DO Referring Physician Date of Admission February 12, 2021 at 18:54 Home Medications & Allergies Home Medications Reviewed patient Home Medication Reconciliation performed by pharmacy medication reconciliations corn lab technician and/or nursing. Patients Allergies have been reviewed. Allergies Allergies Coded Allergies No Known Drug Allergies (Unverified05/02/19) Past Luobysq-Lolzvt-Diacjl Hx Past Med/Social Hx: Reviewed Nursing Past Med/Soc Hx, Reviewed and Corrections made Patient Social History Marrital Status: Employed/Student: retired Alcohol Use: Denies Use Smoking Status: Former Smoker Former Smoker, Quit: Jul 15, 2003 Type Used: Cigarettes 2nd Hand Smoke Exposure: Yes Recent Hopitalizations: No Immunizations Up To Date Tetanus Booster (TDap): Unknown Date of Pneumonia Vaccine: Jul 11, 2018 Date of Influenza Vaccine: Jul 11, 2018 Seasonal Allergies Seasonal Allergies: Yes Past Medical History Surgeries: Cardiac (aortic arch repair) Respiratory: Asthma, COPD Neurological: Headaches /Migraines Reproductive: No Sexually Transmitted Disease: No HIV/AIDS: No Female Reproductive Disorders: Denies Musculoskeletal: Arthritis Loss of Vision: Denies Hearing Impairment: Denies Cancer: Melanoma Did You Recieve Any Treatments: Yes Skin/Integumentary: Psoriasis History of Blood Disorders: No Adverse Reaction to Blood Anna: No (N/A) Review of Systems Constitutional: malaise, weakness Cardiovascular: palpitations All Other Systems Reviewed Negative Unless Noted: Yes Physical Exam Physical Exam Vital Signs Capillary Refill : Height, Weight, BMI Height: 5'8.00" Weight: 135lbs. 8.0oz. 61.345242jw; 20.6 BMI Method: General Appearance: No Apparent Distress, WD/WN, Anxious, Thin Eyes: Bilateral Eye Normal Inspection, Bilateral Eye PERRL HEENT: PERRL/EOMI, Normal ENT Inspection, Pharynx Normal Neck: Full Range of Motion, Normal Inspection, Non Tender, Supple, Carotid Bruit Respiratory: Chest Non Tender, Lungs Clear, Normal Breath Sounds, No Accessory Muscle Use, No Respiratory Distress Cardiovascular: No Edema, No Gallop, No JVD, No Murmur, Normal Peripheral Pulses, Irregularly Irregular, Tachycardia Gastrointestinal: Normal Bowel Sounds, No Organomegaly, No Pulsatile Mass, Non Tender, Soft Back: Normal Inspection, No CVA Tenderness, No Vertebral Tenderness Extremity: Normal Capillary Refill, Normal Inspection, Normal Range of Motion, Non Tender, No Calf Tenderness, No Pedal Edema Neurologic/Psychiatric: Alert, Oriented x3, No Motor/Sensory Deficits, Normal Mood/Affect Skin: Normal Color, Warm/Dry Lymphatic: No Adenopathy Results Results/Procedures Labs Laboratory Tests 02/12/21 19:34 Patient resulted labs reviewed. Assessment/Plan Admission Diagnosis Assessment: New onset atrial tachycardia presumed atrial flutter with RVR placed on Cardizem drip and heparin drip Aortic arch repair in the past MR moderate on ECHO Asthma/COPD Systolic dysfunction 40-50% EF Former smoker Plan: Home meds IS Cardiology consultation Admission Status: Observation Diagnosis/Problems Diagnosis/Problems (1) A-fib (2) SOB (shortness of breath) (3) COPD (chronic obstructive pulmonary disease) Copy Copies To 1: OMER ZAMORA MINDI DO February 12, 2021 20:03
[2021-02-12] MEDS ORDERED: ADVAIR HFA 115/21 MCG INHALER 8 GM IH SCH (21:00)
[2021-02-12] MEDS: polyethylene glycoL POWDER 17 GM (MIRALAX) PACK PO SCH (21:11)
[2021-02-12] MEDS: SENNA W/DOCUSATE (SENOKOT S) TABLET PO SCH (22:05)
[2021-02-12] MEDS: MONTELUKAST 10 MG (SINGULAIR) TAB PO SCH (22:05)
[2021-02-13 03:32] LABS: BASOPHILS # (AUTO) 0.1 10^3/uL (0.0-0.1); BASOPHILS % (AUTO) 1 % (0-10); EOSINOPHILS # (AUTO) 0.2 10^3/uL (0.0-0.3); EOSINOPHILS % (AUTO) 4 % (0-10); HEMATOCRIT 38 % (35-52); HEMOGLOBIN 12.5 g/dL (11.5-16.0); LYMPHOCYTES # (AUTO) 2.1 10^3/uL (1.0-4.0); LYMPHOCYTES % (AUTO) 39 % (12-44); MEAN CORPUSCULAR HEMOGLOBIN 31 pg (25-34); MEAN CORPUSCULAR HGB CONC 33 g/dL (32-36); MEAN CORPUSCULAR VOLUME 95 fL (80-99); MEAN PLATELET VOLUME 11.3 fL (9.0-12.2); MONOCYTES # (AUTO) 0.4 10^3/uL (0.0-1.0); MONOCYTES % (AUTO) 8 % (0-12); NEUTROPHILS # (AUTO) 2.5 10^3/uL (1.8-7.8); NEUTROPHILS % (AUTO) 48 % (42-75); PLATELET COUNT 146 10^3/uL (130-400); WHITE BLOOD COUNT 5.3 10^3/uL (4.3-11.0)
[2021-02-13 03:54] LABS: ALANINE AMINOTRANSFERASE 47 U/L (0-55); ALBUMIN 3.2 GM/DL (3.2-4.5); ALKALINE PHOSPHATASE 106 U/L (40-136); BILIRUBIN,TOTAL 0.6 MG/DL (0.1-1.0); BUN/CREATININE RATIO 12; CALCIUM 8.3 MG/DL (8.5-10.1); CARBON DIOXIDE 21 MMOL/L (21-32); CHLORIDE 111 MMOL/L (98-107); CREATININE SERUM 0.74 MG/DL (0.60-1.30); GFR ESTIMATED > 60; GLUCOSE 111 MG/DL (70-105); POTASSIUM 3.8 MMOL/L (3.6-5.0); SODIUM 138 MMOL/L (135-145); TOTAL PROTEIN 5.5 GM/DL (6.4-8.2)
[2021-02-13] MEDS ORDERED: FUROSEMIDE 40 MG/4 ML INJ (LASIX) IVP ONE (05:15)
--- NOTE | 2021-02-13 05:21 | Pulmonary Consultation ---
History of Present Illness History of Present Illness Date Seen by Provider: February 13, 2021 Time Seen by Provider: 05:22 Date of Admission Allergies and Home Medications Allergies Coded Allergies: No Known Drug Allergies (Unverified , 05/02/19) Home Medications Aspirin 81 Mg Tab.chew, 81 MG PO DAILY, (Reported) Cetirizine HCl 10 Mg Tablet, 10 MG PO DAILY, (Reported) Estradiol 42.5 Gm Cream.appl, 1.25 GM VG WEEK, (Reported) Montelukast Sodium 10 Mg Tablet, 10 MG PO DAILY, (Reported) Zolpidem Tartrate 5 Mg Tablet, 2.5 MG PO PRN PRN for INSOMNIA, (Reported) Past Wwjmeai-Mnycwe-Lioxos Hx Past Med/Social Hx: Reviewed Nursing Past Med/Soc Hx, Reviewed and Corrections made Patient Social History Alcohol Use: Denies Use Smoking Status: Former Smoker Type Used: Cigarettes Former Smoker, Quit: Jul 15, 2003 2nd Hand Smoke Exposure: Yes Recent Hopitalizations: No Have you traveled recently?: No Alcohol Use?: No Immunizations Up To Date Tetanus Booster (TDap): Unknown Date of Pneumonia Vaccine: Jul 11, 2018 Date of Influenza Vaccine: Jul 11, 2018 Seasonal Allergies Seasonal Allergies: Yes Past Medical History Surgeries: No (NECK SURGERY, AORTIC ANEURYSM REPAIR, ROTATOR CUFF, KNEE SCOPE X3) Cardiac (aortic arch repair) Respiratory: Yes Asthma, COPD Cardiac: No Neurological: Yes Headaches /Migraines Reproductive Disorders: No Female Reproductive Disorders: Denies Sexually Transmitted Disease: No HIV/AIDS: No Genitourinary: No Gastrointestinal: No Musculoskeletal: Yes Arthritis Endocrine: No HEENT: Yes (READING GLASSES) Loss of Vision: Denies Hearing Impairment: Denies Cancer: Yes (ON LEG) Melanoma Did You Recieve Any Treatments: Yes Psychosocial: No Integumentary: Yes (MILD) Psoriasis Blood Disorders: No Adverse Reaction/Blood Tranf: No (N/A) Review of Systems Time Seen by Provider: 05:22 Sepsis Event Evaluation Height, Weight, BMI Height: 5'8.00" Weight: 135lbs. 8.0oz. 61.326261fz; 20.36 BMI Method: Exam Exam Vital Signs Date Time Temp Pulse Resp B/P (MAP) Pulse Ox O2 Delivery O2 Flow Rate FiO2 02/13/21 04:00 95 Room Air 02/13/21 04:00 97 18 120/59 (79) 91 Room Air 02/13/21 03:00 66 20 122/73 (89) 91 Room Air 02/13/21 02:00 84 17 113/102 (106) 96 Room Air 02/13/21 01:00 60 02/13/21 01:00 56 17 109/64 (79) 94 Room Air 02/13/21 00:00 56 13 99/63 (75) 92 Room Air 02/12/21 23:59 95 Room Air 02/12/21 23:00 64 21 107/60 (76) 93 Room Air 02/12/21 22:00 115 22 131/74 (93) 95 Room Air 02/12/21 21:00 77 13 112/59 (76) 93 Room Air 02/12/21 20:30 83 22 115/75 (88) 97 Room Air 02/12/21 20:17 70 02/12/21 20:00 77 28 102/63 (76) 95 Room Air 02/12/21 20:00 95 Room Air 02/12/21 19:45 68 27 97/66 (76) 94 Room Air 02/12/21 19:30 101 27 117/78 (91) 94 Room Air 02/12/21 19:15 82 20 115/72 (86) 95 Room Air I & O 02/13/21 07:00 Intake Total 700 ml Output Total 750 ml Balance -50 ml Height & Weight Height: 5'8.00" Weight: 135lbs. 8.0oz. 61.909291pg; 20.36 BMI Method: General Appearance: No Apparent Distress, WD/WN, Anxious, Thin HEENT: PERRL/EOMI, Normal ENT Inspection, Pharynx Normal Neck: Full Range of Motion, Normal Inspection, Non Tender, Supple, Carotid Bruit Respiratory: Chest Non Tender, Lungs Clear, Normal Breath Sounds, No Accessory Muscle Use, No Respiratory Distress Cardiovascular: No Edema, No Gallop, No JVD, No Murmur, Normal Peripheral Pul ses, Irregularly Irregular, Tachycardia Extremity: Normal Capillary Refill, Normal Inspection, Normal Range of Motion, Non Tender, No Calf Tenderness, No Pedal Edema Neurologic/Psychiatric: Alert, Oriented x3, No Motor/Sensory Deficits, Normal Mood/Affect Skin: Normal Color, Warm/Dry Lymphatic: No Adenopathy Results Lab Laboratory Tests 02/12/21 19:34 5/13/21 03:22 Assessment/Plan Assessment/Plan Asthma/COPDAE -prednisone taper -SVNs -Advair Tachycardia - resolved -Cardiology following CHF with EF 40-50% -Lasix 40mg x 1 -monitor -Elevated BNP HX of aortic arch repair Mod Mitral regurg per echo Hx of tobacco use EDIS HART DO February 13, 2021 05:21
[2021-02-13] MEDS: predniSONE 10 MG TAB PO SCH (06:07)
[2021-02-13] MEDS: RT-ALBUTEROL/IPRATROPIUM 3 ML (DUONEB) VIAL INH SCH ×4 (07:09→18:38)
--- NOTE | 2021-02-13 07:47 | Consultation-Cardiology ---
HPI-Cardiology Cardiology Consultation Date of Consultation 02/13/21 Date of Admission Time Seen by Provider: 07:44 Indication: Atrial flutter HPI 70-year-old lady with history of aortic arch aneurysm, history of repair done 8 years ago, has been doing well, started to have sudden onset of palpitation, felt her heart racing. No chest pain. No syncope or near syncopal episode, went to [facility] emergency room and noted to be in supraventricular tachycardia. She was given adenosine 6 and 12 mg without any change. She was started on Cardizem and heparin drip. Has been doing well, still tachycardic. Ate breakfast today. Home Medications & Allergies Allergies: Coded Allergies: No Known Drug Allergies (Unverified , 05/02/19) Home Medication List Reviewed: Yes [id number] Hx Patient Social History Marital Status: Employed/Student: retired Smoking Status: Former Smoker Type Used: Cigarettes 2nd Hand Smoke Exposure: Yes Recent Hopitalizations: No Have you traveled recently?: No Alcohol Use?: No Immunizations Up To Date Tetanus Booster (TDap): Unknown Date of Pneumonia Vaccine: Jul 11, 2018 Date of Influenza Vaccine: Jul 11, 2018 Past Medical History Discussed below Family Medical History Family Medical Hx Noncontributory Review of Systems-General Review of Systems Constitutional: malaise, weakness EENTM: see HPI, no symptoms reported Respiratory: see HPI; No cough, No dyspnea on exertion, No hemoptysis, No orthopnea, No phlegm, No short of breath, No stridor, No wheezing, No other Cardiovascular: see HPI; No chest pain, No edema, No Hx of Intervention; palpitations; No syncope, No vascular heart diseas, No other Gastrointestinal: no symptoms reported, see HPI Genitourinary: no symptoms reported, see HPI Musculoskeletal: no symptoms reported, see HPI Skin: no symptoms reported, see HPI Psychiatric/Neurological: No Symptoms Reported, See HPI All Other Systems Reviewed Negative Unless Noted: Yes Reviewed Test Results Reviewed Test Results Lab Laboratory Tests Test 02/12/21 19:34 02/12/21 19:43 02/13/21 03:22 Range/Units White Blood Count 7.8 5.3 4.3-11.0 10^3/uL Red Blood Count 4.65 3.99 3.80-5.11 10^6/uL Hemoglobin 14.7 12.5 11.5-16.0 g/dL Hematocrit 45 38 35-52 % Mean Corpuscular Volume 97 95 80-99 fL Mean Corpuscular Hemoglobin 32 31 25-34 pg Mean Corpuscular Hemoglobin Concent 33 33 32-36 g/dL Red Cell Distribution Width 13.1 13.0 10.0-14.5 % Platelet Count 181 146 130-400 10^3/uL Mean Platelet Volume 10.9 11.3 9.0-12.2 fL Immature Granulocyte % (Auto) 0 0 % Neutrophils (%) (Auto) 64 48 42-75 % Lymphocytes (%) (Auto) 25 39 12-44 % Monocytes (%) (Auto) 7 8 0-12 % Eosinophils (%) (Auto) 3 4 0-10 % Basophils (%) (Auto) 1 1 0-10 % Neutrophils # (Auto) 4.9 2.5 1.8-7.8 10^3/uL Lymphocytes # (Auto) 2.0 2.1 1.0-4.0 10^3/uL Monocytes # (Auto) 0.6 0.4 0.0-1.0 10^3/uL Eosinophils # (Auto) 0.2 0.2 0.0-0.3 10^3/uL Basophils # (Auto) 0.1 0.1 0.0-0.1 10^3/uL Immature Granulocyte # (Auto) 0.0 0.0 0.0-0.1 10^3/uL Prothrombin Time 15.1 H 12.2-14.7 SEC INR Comment 1.1 0.8-1.4 Activated Partial Thromboplast Time 124 *H 66 H 24-35 SEC Sodium Level 141 138 135-145 MMOL/L Potassium Level 4.3 3.8 3.6-5.0 MMOL/L Chloride Level 110 H 111 H 98-107 MMOL/L Carbon Dioxide Level 19 L 21 21-32 MMOL/L Anion Gap 12 6 5-14 MMOL/L Blood Urea Nitrogen 8 9 7-18 MG/DL Creatinine 0.76 0.74 0.60-1.30 MG/DL Estimat Glomerular Filtration Rate > 60 > 60 BUN/Creatinine Ratio 11 12 Glucose Level 115 H 111 H 70-105 MG/DL Calcium Level 8.9 8.3 L 8.5-10.1 MG/DL Corrected Calcium 9.1 8.9 8.5-10.1 MG/DL Total Bilirubin 1.0 0.6 0.1-1.0 MG/DL Aspartate Amino Transf (AST/SGOT) 47 H 32 5-34 U/L Alanine Aminotransferase (ALT/SGPT) 64 H 47 0-55 U/L Alkaline Phosphatase 119 106 40-136 U/L Total Protein 6.2 L 5.5 L 6.4-8.2 GM/DL Albumin 3.7 3.2 3.2-4.5 GM/DL Troponin I < 0.028 <0.028 NG/ML B-Type Natriuretic Peptide 427.6 H <100.0 PG/ML Physical Exam Physical Exam Vital Signs Vital Signs - First Documented 02/12/21 02/13/21 19:15 07:30 Temp 36.8 Pulse 82 Resp 20 B/P (MAP) 115/72 (86) Pulse Ox 95 O2 Delivery Room Air Capillary Refill : Height, Weight, BMI Height: 5'8.00" Weight: 135lbs. 8.0oz. [id number]; 20.36 BMI Method: General Appearance: No Apparent Distress, WD/WN, Anxious, Thin Eyes: Bilateral Eye Normal Inspection, Bilateral Eye PERRL HEENT: PERRL/EOMI, Normal ENT Inspection, Pharynx Normal Neck: Full Range of Motion, Normal Inspection, Non Tender, Supple, Carotid Bruit Respiratory: Chest Non Tender, Lungs Clear, Normal Breath Sounds, No Accessory Muscle Use, No Respiratory Distress Cardiovascular: No Edema, No Gallop, No JVD, No Murmur, Normal Peripheral Pulses, Irregularly Irregular, Tachycardia Gastrointestinal: Normal Bowel Sounds, No Organomegaly, No Pulsatile Mass, Non Tender, Soft Back: Normal Inspection, No CVA Tenderness, No Vertebral Tenderness Extremity: Normal Capillary Refill, Normal Inspection, Normal Range of Motion, Non Tender, No Calf Tenderness, No Pedal Edema Neurologic/Psychiatric: Alert, Oriented x3, No Motor/Sensory Deficits, Normal Mood/Affect Skin: Normal Color, Warm/Dry Lymphatic: No Adenopathy A/P-Cardiology Admission Diagnosis Atrial flutter with rapid ventricular response Congestive heart failure, acute left ventricular systolic dysfunction, nonischemic cardiomyopathy Palpitation Aortic arch aneurysm Assessment/Plan Atrial flutter with rapid ventricular response, started on heparin and Cardizem drip, explaining her condition to the patient, planning to perform PERLITA and electrical cardioversion, possible arrangement for ablation and EP evaluation as an outpatient. Congestive heart failure, acute left ventricular systolic dysfunction, probably secondary to tachycardia, nonischemic in nature. Starting beta-blockers and AUBREY inhibitors. History of aortic arch aneurysm, history of repair done 8 years ago. No follow- up was done recently. Will evaluate the arch with PERLITA. Mild hypertension, monitor blood pressure no history of hypertension Palpitations secondary to tachycardia COPD Addendum on February 13, 2021 at 4:49 PM Patient had PERLITA with electrical cardioversion There is dilated cardiomyopathy with diffuse left ventricular hypokinesia, moderate to severe mitral regurgitation, moderate tricuspid regurgitation, patient will be starting on Entresto and Coreg Cardioversion was done, successfully, patient will be started on amiodarone bolus and a drip There is endograft in the thoracic aorta, questionable small leak around the graft, I will evaluate CT angiogram JACKELINE DELGADO MD February 13, 2021 07:47
--- NOTE | 2021-02-13 07:49 | Conscious Sedation/ASA ---
Conscious Sedation Pre-Proced Time 07:49 ASA Score 3 For ASA 3 and 4: Consider anesthesia and medical clearance. Also, for patients with a history of failed moderate sedation consider anesthesia. Airway Lungs Heart ASA score ASA 1: a normal healthy patient ASA 2: a patient with a mild systemic disease (mid diabetes, controlled hypertension, obesity x ASA 3: a patient with a severe systemic disease that limits activity (angina, COPD, prior Myocardial infarction) ASA 4: a patient with an incapacitating disease that is a constant threat to life (CHF, renal failure) ASA 5: a moribund patient not expected to survive 24 hrs. (ruptured aneurysm) ASA 6: a declared brain- patient whose organs are being harvested. For emergent operations, add the letter E after the classification Mallampati Classification Grade 3 Sedation Plan Analgesia, Amnesia, Plan communicated to team members, Discussed options with patient/fam, Discussed risks with patient/fam The patient is an appropriate candidate to undergo the planned procedure, sedation, and anesthesia. The patient immediately re-assessed prior to indication. JACKELINE DELGADO MD February 13, 2021 07:49
[2021-02-13] MEDS ORDERED: KCL 20 MEQ TAB (K-DUR) PO ONE (08:00)
[2021-02-13] MEDS: ASPIRIN E.C. 81 MG (ECOTRIN) TAB PO SCH (08:21)
[2021-02-13] MEDS: SENNA W/DOCUSATE (SENOKOT S) TABLET PO SCH ×2 (08:21→22:12)
[2021-02-13] MEDS: polyethylene glycoL POWDER 17 GM (MIRALAX) PACK PO SCH ×2 (08:21→22:12)
[2021-02-13] MEDS: dilTIAZem DRIP PRE-MIX 125 ML IV SCH (10:15)
[2021-02-13] MEDS ORDERED: FLUT16SP22 NSEACH (10:43)
[2021-02-13] MEDS ORDERED: ESTRADIOL VG (10:43)
[2021-02-13] MEDS ORDERED: FLUT1DIS26 INH (10:43)
[2021-02-13] MEDS ORDERED: RT-ALBUINH IH (10:43)
[2021-02-13] MEDS ORDERED: CALC1TAB29 PO (10:43)
[2021-02-13] MEDS ORDERED: ZOLP5TAB7 PO (10:43)
[2021-02-13] MEDS: RT--FLUTICASONE/SALMETEROL 113-14 (AIRDUO RespiCLICK) IH SCH ×2 (10:51→18:39)
--- NOTE | 2021-02-13 11:24 | Progress Note ---
Subjective Date Seen by a Provider: February 13, 2021 Time Seen by a Provider: 10:30 Subjective/Events-last exam Patient doing well Tachycardia of 150 when she gets up to use commode CT ordered by Dr Annel Eisenberg has helped the patient Cardizem maintained CXR and labs reviewed O2 maintained Cardioversion after PERLITA set for 1600 Review of Systems General: Fatigue Pulmonary: Dyspnea, Cough Cardiovascular: Palpitations Objective Exam Last Set of Vital Signs Vital Signs Date Time Temp Pulse Resp B/P (MAP) Pulse Ox O2 Delivery O2 Flow Rate FiO2 02/13/21 11:20 95 Room Air 02/13/21 11:00 118 28 150/81 (104) 02/13/21 07:30 36.8 Capillary Refill : I&O Intake and Output 02/13/21 00:00 Intake Total 450 ml Output Total 350 ml Balance 100 ml Intake Oral 450 ml Output Urine Total 350 ml Daily Weight Change No General: Alert, Oriented X3, Cooperative, No Acute Distress Lungs: Clear to Auscultation Heart: Other (tachy ) Abdomen: Normal Bowel Sounds Neuro: Normal Gait Results Lab Laboratory Tests 02/12/21 19:34: White Blood Count 7.8, Red Blood Count 4.65, Hemoglobin 14.7, Hematocrit 45, Mean Corpuscular Volume 97, Mean Corpuscular Hemoglobin 32, Mean Corpuscular Hemoglobin Concent 33, Red Cell Distribution Width 13.1, Platelet Count 181, Mean Platelet Volume 10.9, Immature Granulocyte % (Auto) 0, Neutrophils (%) (Auto) 64, Lymphocytes (%) (Auto) 25, Monocytes (%) (Auto) 7, Eosinophils (%) (Auto) 3, Basophils (%) (Auto) 1, Neutrophils # (Auto) 4.9, Lymphocytes # (Auto) 2.0, Monocytes # (Auto) 0.6, Eosinophils # (Auto) 0.2, Basophils # (Auto) 0.1, Immature Granulocyte # (Auto) 0.0, Prothrombin Time 15.1H, INR Comment 1.1, Activated Partial Thromboplast Time 124*H, Sodium Level 141, Potassium Level 4.3, Chloride Level 110H, Carbon Dioxide Level 19L, Anion Gap 12, Blood Urea Nitrogen 8, Creatinine 0.76, Estimat Glomerular Filtration Rate > 60, BUN/Creatinine Ratio 11, Glucose Level 115H, Calcium Level 8.9, Corrected Calcium 9.1, Total Bilirubin 1.0, Aspartate Amino Transf (AST/SGOT) 47H, Alanine Aminotransferase (ALT/SGPT) 64H, Alkaline Phosphatase 119, Total Protein 6.2L, Albumin 3.7 02/12/21 19:43: Troponin I < 0.028, B-Type Natriuretic Peptide 427.6H 02/13/21 03:22: White Blood Count 5.3, Red Blood Count 3.99, Hemoglobin 12.5, Hematocrit 38, Mean Corpuscular Volume 95, Mean Corpuscular Hemoglobin 31, Mean Corpuscular Hemoglobin Concent 33, Red Cell Distribution Width 13.0, Platelet Count 146, Mean Platelet Volume 11.3, Immature Granulocyte % (Auto) 0, Neutrophils (%) (Auto) 48, Lymphocytes (%) (Auto) 39, Monocytes (%) (Auto) 8, Eosinophils (%) (Auto) 4, Basophils (%) (Auto) 1, Neutrophils # (Auto) 2.5, Lymphocytes # (Auto) 2.1, Monocytes # (Auto) 0.4, Eosinophils # (Auto) 0.2, Basophils # (Auto) 0.1, Immature Granulocyte # (Auto) 0.0, Activated Partial Thromboplast Time 66H, Sodium Level 138, Potassium Level 3.8, Chloride Level 111H, Carbon Dioxide Level 21, Anion Gap 6, Blood Urea Nitrogen 9, Creatinine 0.74, Estimat Glomerular Filtration Rate > 60, BUN/Creatinine Ratio 12, Glucose Level 111H, Calcium Level 8.3L, Corrected Calcium 8.9, Total Bilirubin 0.6, Aspartate Amino Transf (AST/SGOT) 32, Alanine Aminotransferase (ALT/SGPT) 47, Alkaline Phosphatase 106, Total Protein 5.5L, Albumin 3.2 02/13/21 09:32: Activated Partial Thromboplast Time 81H Assessment/Plan Assessment/Plan Assess & Plan/Chief Complaint Assessment: New onset atrial tachycardia presumed atrial flutter with RVR placed on Cardizem drip and heparin drip Aortic arch repair in the past MR moderate on ECHO Asthma/COPD Systolic dysfunction 40-50% EF Former smoker Plan: Home meds IS Cardiology consultation 02/13/21: Cardioversion PERLITA Diagnosis/Problems Diagnosis/Problems (1) A-fib (2) SOB (shortness of breath) (3) COPD (chronic obstructive pulmonary disease) GRICELDA SONG DO February 13, 2021 11:24
[2021-02-13] MEDS ORDERED: proPOfol 200 MG/20 ML (DIPRIVAN) VIAL IV ONE (15:40)
[2021-02-13] MEDS ORDERED: LIDOCAINE 2% VISCOUS 15 ML UDC ONE (15:40)
[2021-02-13] MEDS ORDERED: MIDAZOLAM 5 MG/5 ML (VERSED) VIAL ONE (15:40)
[2021-02-13] MEDS ORDERED: AMIODARONE (BOLUS) 150 MG/3 ML IV ONE (16:24)
[2021-02-13] MEDS ORDERED: D5W 100 ML IVPB 100 ML IV ONE (16:25)
--- NOTE | 2021-02-13 16:43 | Anesthesia-General Post-Op ---
MAC Patient Condition Mental Status/LOC: Same as Preop Cardiovascular: Satisfactory Nausea/Vomiting: Absent Respiratory: Satisfactory Pain: Controlled Complications: Absent Post Op Complications Complications None Follow Up Care/Instructions Patient Instructions None needed. Anesthesiology Discharge Order Discharge Order Patient is doing well, no complaints, stable vital signs, no apparent adverse anesthesia problems. No complications reported per nursing. ARDEN VALLADARES CRNA February 13, 2021 16:43
[2021-02-13] MEDS ORDERED: AMIODARONE INJECTION 450 MG in D5W IV SOLUTION (EXCEL) 250 ML IV SCH (16:45)
[2021-02-13] MEDS ORDERED: AMIODARONE FOR BOLUS 150 MG in D5W 100 ML IVPB 100 ML IV ONE (16:45)
--- NOTE | 2021-02-13 16:49 | Cardioversion ---
Cardioversion PROCEDURE PHYSICIAN: Jackeline Bhat DATE OF PROCEDURE: 02/13/21 DIRECT EXTERNAL ELECTRICAL CARDIOVERSION: Indications: Atrial Fibrillation with rapid ventricular rate Preoperative diagnoses: Atrial Fibrillation with rapid ventricular rate Postoperative diagnosis: Sinus rhythm, Successful Electrical Cardioversion Anesthesia: By Anesthesia services Complications: None Specimen: None Contrast: 0 Flouroscopy: none Procedure Details: The patient was brought the kiln labourer after informed consent was taken, all the risks and complications were explained including the risk of stroke. Electrical cardioversion was carried out with anesthesia support with propofol. 200 joules of synchronized shock was delivered through external patches which promptly restored sinus rhythm. The patient tolerated the procedure well. Conclusions: Successful electrical cardioversion in terminating atrial flutter JACKELINE BHAT MD February 13, 2021 16:49
[2021-02-13] MEDS ORDERED: IOHEXOL 350 MG/ML 100 ML (OMNIPAQUE 350) VIAL IV ONE (17:00)
[2021-02-13] MEDS ORDERED: HOLD METFORMIN - RECEIVED CONTRAST 20 ML VIAL IV SCH (17:00)
[2021-02-13] MEDS ORDERED: NS 100 ML (IVPB) BAG IV ONE (17:00)
--- NOTE | 2021-02-13 18:15 | Diagnostic Imaging Report ---
PROCEDURE: CT angiography of the abdomen and chest with and without contrast. TECHNIQUE: After intravenous administration of contrast, thin section axial CT angiography of the abdomen and chest were obtained. 3D MIP reformats were provided. Auto Exposure Controls were utilized during the CT exam to meet ALARA standards for radiation dose reduction. INDICATION: History of thoracic aortic aneurysm graft in 2013. PERLITA cardioversion done today. COMPARISON STUDY: CTA of the chest without contrast from May 31, 2020. FINDINGS: CTA of the chest and abdomen demonstrates stable repair of the ascending aorta. There is a tricuspid valve. No valvular calcifications are present. There are some calcifications of the coronary arteries. Heart size appears a little larger than the previous exam. Takeoff of the great vessels demonstrates mild arterial sclerosis. Ascending aorta measures up to 3.9 cm is stable. There is some ulceration of the aorta just distal to the left subclavian artery. Ascending aorta demonstrates no dissection or aneurysm. Nonstenotic plaque is present in the descending aorta. No abnormal adenopathy is present. Patient has developed small bilateral pleural effusions right greater than left. On the right this measures up to 2.4 cm. There is minimal adjacent atelectasis. The tree-in-bud infiltrates in the lingula and right middle lobe have nearly cleared. The osseous structures are unremarkable. ABDOMEN: No aneurysm or dissection is present. Diffuse calcifications are seen in the aorta without stenosis. No stenosis seen in the celiac axis or SMA. There are 2 right renal arteries and single left renal artery. No stenosis is present. Pericholecystic fluid is present. There is some questionable ductal dilatation. Recommend ultrasound for further evaluation. The spleen, pancreas, adrenal glands and kidneys appear unremarkable. There is some wall thickening of the ascending colon suggestive of colitis. Degenerative changes present in the spine. IMPRESSION: 1. Tree-in-bud appearance of the middle lobe and lingula have nearly resolved. 2. Stable ascending aorta. No aneurysm or dissection is present. Calcifications of the coronary arteries are again identified. 3. The heart size appears a little larger than previously. 4. There has been development of small bilateral pleural effusions. 5. There is pericholecystic fluid. The ascending colon is thickened. This could be due to colitis. Recommend ultrasound of the gallbladder for further evaluation. Dictated by: Dictated on workstation # [id number]
[2021-02-13] MEDS: MONTELUKAST 10 MG (SINGULAIR) TAB PO SCH (22:11)
[2021-02-13] MEDS: SACUBITRIL/VALSARTAN 24/26 MG (ENTRESTO) TABLET PO SCH (22:11)
[2021-02-13] MEDS: APIXABAN 5 MG (ELIQUIS) TABLET PO SCH (22:12)
[2021-02-14 02:57] LABS: BASOPHILS % (AUTO) 0 % (0-10); EOSINOPHILS # (AUTO) 0.1 10^3/uL (0.0-0.3); EOSINOPHILS % (AUTO) 1 % (0-10); HEMATOCRIT 37 % (35-52); HEMOGLOBIN 12.3 g/dL (11.5-16.0); LYMPHOCYTES # (AUTO) 1.6 10^3/uL (1.0-4.0); LYMPHOCYTES % (AUTO) 20 % (12-44); MEAN CORPUSCULAR HEMOGLOBIN 32 pg (25-34); MEAN CORPUSCULAR HGB CONC 33 g/dL (32-36); MEAN CORPUSCULAR VOLUME 96 fL (80-99); MEAN PLATELET VOLUME 11.1 fL (9.0-12.2); MONOCYTES # (AUTO) 0.8 10^3/uL (0.0-1.0); MONOCYTES % (AUTO) 10 % (0-12); NEUTROPHILS # (AUTO) 5.4 10^3/uL (1.8-7.8); NEUTROPHILS % (AUTO) 69 % (42-75); PLATELET COUNT 145 10^3/uL (130-400); WHITE BLOOD COUNT 7.8 10^3/uL (4.3-11.0)
[2021-02-14 03:08] LABS: CHLORIDE 107 MMOL/L (98-107); POTASSIUM 3.6 MMOL/L (3.6-5.0); SODIUM 137 MMOL/L (135-145)
[2021-02-14 03:09] LABS: CALCIUM 8.4 MG/DL (8.5-10.1)
[2021-02-14 03:10] LABS: GLUCOSE 111 MG/DL (70-105)
[2021-02-14 03:11] LABS: CARBON DIOXIDE 20 MMOL/L (21-32)
[2021-02-14 03:13] LABS: CREATININE SERUM 0.73 MG/DL (0.60-1.30); GFR ESTIMATED > 60; PHOSPHORUS 3.5 MG/DL (2.3-4.7)
[2021-02-14 03:14] LABS: BUN/CREATININE RATIO 10
[2021-02-14 03:16] LABS: MAGNESIUM 1.8 MG/DL (1.6-2.4)
--- NOTE | 2021-02-14 04:28 | Pulmonary Progress Note ---
Subjective Date Seen by a Provider: February 14, 2021 Time Seen by a Provider: 04:28 Subjective/Events-last exam No complications noted. Sepsis Event Evaluation Height, Weight, BMI Height: 5'8.00" Weight: 135lbs. 8.0oz. 61.231215pw; 20.36 BMI Method: Exam Exam Vital Signs Date Time Temp Pulse Resp B/P (MAP) Pulse Ox O2 Delivery O2 Flow Rate FiO2 02/14/21 03:00 70 22 127/71 (89) 94 Room Air 02/14/21 02:00 69 20 109/64 (79) 93 Room Air 02/14/21 01:00 70 15 111/73 (86) 95 Room Air 02/14/21 01:00 71 02/14/21 00:00 75 18 125/75 (92) 95 Room Air 02/13/21 23:59 95 Room Air 02/13/21 23:00 74 14 102/61 (75) 93 Room Air 02/13/21 22:00 89 18 96 Room Air 02/13/21 21:00 85 14 96 Room Air 02/13/21 20:00 93 22 97 Room Air 02/13/21 20:00 36.6 02/13/21 20:00 95 Room Air 02/13/21 20:00 95 02/13/21 19:00 90 02/13/21 19:00 86 14 98 Room Air 02/13/21 18:40 93 Room Air 02/13/21 18:00 77 21 102/86 (91) 95 Room Air 02/13/21 17:00 74 11 86/48 (61) 98 OxyMask 15.00 02/13/21 16:30 67 02/13/21 16:00 95 Room Air 02/13/21 16:00 123 14 92/56 (68) 93 Room Air 02/13/21 15:14 122 20 132/83 (99) 98 Room Air 02/13/21 14:40 95 Room Air 02/13/21 14:00 121 15 131/93 (106) 94 Room Air 02/13/21 13:00 122 14 135/80 (98) 92 Room Air 02/13/21 13:00 121 02/13/21 12:00 120 25 146/106 (119) 93 Room Air 02/13/21 11:43 36.2 02/13/21 11:20 95 Room Air 02/13/21 11:00 118 28 150/81 (104) 90 Room Air 02/13/21 10:00 117 19 147/89 (108) 93 Room Air 02/13/21 09:00 117 14 148/88 (108) 92 Room Air 02/13/21 08:00 95 Room Air 02/13/21 08:00 120 24 145/89 (107) 92 Room Air 02/13/21 07:30 36.8 02/13/21 07:11 98 Room Air 02/13/21 07:00 115 02/13/21 07:00 115 20 161/102 (121) 93 Room Air 02/13/21 06:00 114 17 147/92 (110) 93 Room Air 02/13/21 05:00 115 16 145/95 (112) 93 Room Air I & O 02/14/21 07:00 Intake Total 3670 ml Output Total 3800 ml Balance -130 ml Height & Weight Height: 5'8.00" Weight: 135lbs. 8.0oz. 61.334095en; 20.36 BMI Method: General Appearance: No Apparent Distress, WD/WN, Anxious, Thin HEENT: PERRL/EOMI, Normal ENT Inspection, Pharynx Normal Neck: Full Range of Motion, Normal Inspection, Non Tender, Supple, Carotid Bruit Respiratory: Chest Non Tender, Lungs Clear, Normal Breath Sounds, No Accessory Muscle Use, No Respiratory Distress Cardiovascular: No Edema, No Gallop, No JVD, No Murmur, Normal Peripheral Pulses, Irregularly Irregular, Tachycardia Extremity: Normal Capillary Refill, Normal Inspection, Normal Range of Motion, Non Tender, No Calf Tenderness, No Pedal Edema Neurologic/Psychiatric: Alert, Oriented x3, No Motor/Sensory Deficits, Normal Mood/Affect Skin: Normal Color, Warm/Dry Lymphatic: No Adenopathy Results Lab Laboratory Tests 02/12/21 19:34 02/13/21 03:22 02/14/21 02:50 Assessment/Plan Assessment/Plan Asthma/COPDAE -prednisone taper -SVNs -Advair Tachycardia - resolved -Cardiology following -Currently on ammio gtt CHF with EF 40-50% -monitor -Elevated BNP HX of aortic arch repair Mod Mitral regurg per echo Hx of tobacco use EDIS HART DO February 14, 2021 04:28
[2021-02-14] MEDS: RT-ALBUTEROL/IPRATROPIUM 3 ML (DUONEB) VIAL INH SCH ×2 (06:49→11:02)
[2021-02-14] MEDS: RT--FLUTICASONE/SALMETEROL 113-14 (AIRDUO RespiCLICK) IH SCH (06:49)
[2021-02-14] MEDS: predniSONE 10 MG TAB PO SCH (06:52)
--- NOTE | 2021-02-14 08:19 | Cardiology Progress Note ---
Subjective Date Seen by Provider: February 14, 2021 Time Seen by Provider: 08:18 Subjective/Events-last exam Patient is laying down in bed, feeling better. No shortness of breath. Tolerating medication well Review of Systems General: No Chills, No Night Sweats, No Fatigue, No Malaise, No Appetite, No Other HEENT: No Head Aches, No Visual Changes, No Eye Pain, No Ear Pain, No Dysphasia, No Sinus Congestion, No Post Nasal Drip, No Sore Throat, No Other Pulmonary: No Dyspnea, No Cough, No Pleuritic Chest Pain, No Other Cardiovascular: No: Chest Pain, Palpitations, Orthopnea, Paroxysmal Noc. Dyspnea, Edema, Lt Headedness, Other Objective-Cardiology Exam Last Set of Vital Signs Vital Signs 02/13/21 02/14/21 17:00 08:00 Pulse 80 Resp 14 B/P (MAP) 120/69 (86) Pulse Ox 91 O2 Delivery Room Air O2 Flow Rate 15.00 Capillary Refill : I&O Intake and Output 02/14/21 00:00 Intake Total 3320 ml Output Total 4350 ml Balance -1030 ml Intake Oral 3320 ml Output Urine Total 4350 ml General: Alert, Oriented X3, Cooperative, No Acute Distress HEENT: Atraumatic, PERRLA Neck: Supple, No JVD Lungs: Clear to Auscultation Heart: Regular Rate, Normal S1, Normal S2 Abdomen: Normal Bowel Sounds Extremities: No Clubbing, No Cyanosis Skin: No Rashes Neuro: Normal Gait Results Lab Laboratory Tests 02/14/21 02:50 A/P-Cardiology Admission Diagnosis Atrial flutter with rapid ventricular response Congestive heart failure, acute left ventricular systolic dysfunction, nonischemic cardiomyopathy Palpitation Aortic arch aneurysm Assessment/Plan Paroxysmal atrial flutter status post PERLITA and cardioversion, maintained on amiodarone drip, tolerating medication well. Congestive heart failure, acute left ventricular systolic dysfunction, probably secondary to tachycardia, nonischemic in nature. Starting beta-blockers and AUBREY inhibitors. Valvular heart disease with moderate severe mitral regurgitation, moderate tricuspid regurgitation, starting on beta-blockers and Entresto and arrange for follow-up as an outpatient History of aortic arch aneurysm, history of repair done [address] angiogram of the thoracic aorta showed repaired aortic arch with no adverse complication Mild hypertension, monitor blood pressure no history of hypertension Palpitations secondary to tachycardia COPD Okay for discharge from cardiology standpoint, follow-up as an outpatient JACKELINE DELGADO MD February 14, 2021 8:19 am
[2021-02-14] MEDS: APIXABAN 5 MG (ELIQUIS) TABLET PO SCH (08:21)
[2021-02-14] MEDS ORDERED: CARV3.122 PO (08:21)
[2021-02-14] MEDS ORDERED: SACU1TAB2 PO (08:21)
[2021-02-14] MEDS: SENNA W/DOCUSATE (SENOKOT S) TABLET PO SCH (08:21)
[2021-02-14] MEDS ORDERED: APIX5TAB PO (08:21)
[2021-02-14] MEDS ORDERED: AMIO200T6 PO (08:21)
[2021-02-14] MEDS: SACUBITRIL/VALSARTAN 24/26 MG (ENTRESTO) TABLET PO SCH (08:21)
[2021-02-14] MEDS: ASPIRIN E.C. 81 MG (ECOTRIN) TAB PO SCH (08:21)
[2021-02-14] MEDS: polyethylene glycoL POWDER 17 GM (MIRALAX) PACK PO SCH (08:22)
[2021-02-14] MEDS ORDERED: AMIODARONE 200 MG (CORDARONE) TAB PO SCH (09:00)
--- NOTE | 2021-02-14 09:00 | Diagnostic Imaging Report ---
INDICATION: Atrial flutter. TIME OF EXAM: 3:36 AM CORRELATION is made with prior chest from 02/12/2021. FINDINGS: The heart is enlarged but stable. There are changes of median sternotomy. There are basilar interstitial changes, similar to prior exam. No significant effusion is seen. Mid and upper lung conner are clear. There is no pneumothorax. IMPRESSION: Cardiomegaly with mild residual congestive changes however improved when compared with an exam of 2 days earlier. Dictated by: Dictated on workstation # [id number]
[2021-02-14] MEDS: dilTIAZem DRIP PRE-MIX 125 ML IV SCH (10:15)
[2021-02-14] MEDS ORDERED: ALPR.25T PO (10:29)
[2021-02-14] MEDS ORDERED: PRED10TA22 PO (10:29)
--- NOTE | 2021-02-14 10:30 | Discharge Summary ---
Diagnosis/Chief Complaint Date of Admission February 12, 2021 at 18:54 Date of Discharge Discharge Date: February 14, 2021 Discharge Diagnosis Assessment: New onset atrial tachycardia presumed atrial flutter with RVR placed on Cardizem drip and heparin drip Aortic arch repair in the past MR moderate on ECHO Asthma/COPD Systolic dysfunction 40-50% EF Former smoker AECOPD requiring steroids Plan: Home meds IS Cardiology consultation 02/13/21: Cardioversion PERLITA Discharge Summary Discharge Physical Examination Allergies: Coded Allergies: No Known Drug Allergies (Unverified , 05/02/19) Vitals & I&Os Vital Signs Date Time Temp Pulse Resp B/P (MAP) Pulse Ox O2 Delivery O2 Flow Rate FiO2 02/14/21 11:30 02/14/21 11:02 93 Room Air 02/14/21 11:00 73 18 02/13/21 20:00 36.6 02/13/21 17:00 15.00 General Appearance: Alert, Oriented X3, Cooperative Respiratory: Clear to Auscultation Cardiovascular: Regular Rate Neuro: Normal Gait, Normal Speech, Strength at 5/5 X4 Ext Psych/Mental Status: Mental Status NL Hospital Course Was the Problem List Reviewed?: Yes Patent had a short course after admitted from [facility] [place] ER due to new onset atrial flutter with RVR. Patient was placed on Cardizem and ultimately required cardioversion after PERLITA revealed no thrombosis. OAC started and Amio and Cardizem tolerated. Low EF noted so started on new cardiac meds and patient was set for DC. Labs (last 24 hrs) Laboratory Tests 02/12/21 19:34: White Blood Count 7.8, Red Blood Count 4.65, Hemoglobin 14.7, Hematocrit 45, Mean Corpuscular Volume 97, Mean Corpuscular Hemoglobin 32, Mean Corpuscular Hemoglobin Concent 33, Red Cell Distribution Width 13.1, Platelet Count 181, Mean Platelet Volume 10.9, Immature Granulocyte % (Auto) 0, Neutrophils (%) (Auto) 64, Lymphocytes (%) (Auto) 25, Monocytes (%) (Auto) 7, Eosinophils (%) (Auto) 3, Basophils (%) (Auto) 1, Neutrophils # (Auto) 4.9, Lymphocytes # (Auto) 2.0, Monocytes # (Auto) 0.6, Eosinophils # (Auto) 0.2, Basophils # (Auto) 0.1, Immature Granulocyte # (Auto) 0.0, Prothrombin Time 15.1H, INR Comment 1.1, Activated Partial Thromboplast Time 124*H, Sodium Level 141, Potassium Level 4.3, Chloride Level 110H, Carbon Dioxide Level 19L, Anion Gap 12, Blood Urea Nitrogen 8, Creatinine 0.76, Estimat Glomerular Filtration Rate > 60, BUN/Creatinine Ratio 11, Glucose Level 115H, Calcium Level 8.9, Corrected Calcium 9.1, Total Bilirubin 1.0, Aspartate Amino Transf (AST/SGOT) 47H, Alanine Aminotransferase (ALT/SGPT) 64H, Alkaline Phosphatase 119, Total Protein 6.2L, Albumin 3.7 02/12/21 19:43: Troponin I < 0.028, B-Type Natriuretic Peptide 427.6H 02/13/21 03:22: White Blood Count 5.3, Red Blood Count 3.99, Hemoglobin 12.5, Hematocrit 38, Mean Corpuscular Volume 95, Mean Corpuscular Hemoglobin 31, Mean Corpuscular Hemoglobin Concent 33, Red Cell Distribution Width 13.0, Platelet Count 146, Mean Platelet Volume 11.3, Immature Granulocyte % (Auto) 0, Neutrophils (%) (Auto) 48, Lymphocytes (%) (Auto) 39, Monocytes (%) (Auto) 8, Eosinophils (%) (Auto) 4, Basophils (%) (Auto) 1, Neutrophils # (Auto) 2.5, Lymphocytes # (Auto) 2.1, Monocytes # (Auto) 0.4, Eosinophils # (Auto) 0.2, Basophils # (Auto) 0.1, Immature Granulocyte # (Auto) 0.0, Activated Partial Thromboplast Time 66H, So dium Level 138, Potassium Level 3.8, Chloride Level 111H, Carbon Dioxide Level 21, Anion Gap 6, Blood Urea Nitrogen 9, Creatinine 0.74, Estimat Glomerular Filtration Rate > 60, BUN/Creatinine Ratio 12, Glucose Level 111H, Calcium Level 8.3L, Corrected Calcium 8.9, Total Bilirubin 0.6, Aspartate Amino Transf (AST/SGOT) 32, Alanine Aminotransferase (ALT/SGPT) 47, Alkaline Phosphatase 106, Total Protein 5.5L, Albumin 3.2 02/13/21 09:32: Activated Partial Thromboplast Time 81H 02/13/21 15:38: Activated Partial Thromboplast Time 87H 02/14/21 02:50: White Blood Count 7.8, Red Blood Count 3.91, Hemoglobin 12.3, Hematocrit 37, Mean Corpuscular Volume 96, Mean Corpuscular Hemoglobin 32, Mean Corpuscular Hemoglobin Concent 33, Red Cell Distribution Width 13.3, Platelet Count 145, Mean Platelet Volume 11.1, Immature Granulocyte % (Auto) 0, Neutrophils (%) (Auto) 69, Lymphocytes (%) (Auto) 20, Monocytes (%) (Auto) 10, Eosinophils (%) (Auto) 1, Basophils (%) (Auto) 0, Neutrophils # (Auto) 5.4, Lymphocytes # (Auto) 1.6, Monocytes # (Auto) 0.8, Eosinophils # (Auto) 0.1, Basophils # (Auto) 0.0, Immature Granulocyte # (Auto) 0.0, Sodium Level 137, Potassium Level 3.6, Chloride Level 107, Carbon Dioxide Level 20L, Anion Gap 10, Blood Urea Nitrogen 7, Creatinine 0.73, Estimat Glomerular Filtration Rate > 60, BUN/Creatinine Ratio 10, Glucose Level 111H, Calcium Level 8.4L, Phosphorus Level 3.5, Magnesium Level 1.8 Microbiology 02/12/21 MRSA Screen - Final, Complete Pending Labs Microbiology Date/Time Source Procedure Growth Status 02/12/21 19:06 Nasal MRSA Screen - Final Complete Laboratory Tests 02/12/21 19:34: White Blood Count 7.8, Red Blood Count 4.65, Hemoglobin 14.7, Hematocrit 45, Mean Corpuscular Volume 97, Mean Corpuscular Hemoglobin 32, Mean Corpuscular Hemoglobin Concent 33, Red Cell Distribution Width 13.1, Platelet Count 181, Mean Platelet Volume 10.9, Immature Granulocyte % (Auto) 0, Neutrophils (%) (Auto) 64, Lymphocytes (%) (Auto) 25, Monocytes (%) (Auto) 7, Eosinophils (%) (Auto) 3, Basophils (%) (Auto) 1, Neutrophils # (Auto) 4.9, Lymphocytes # (Auto) 2.0, Monocytes # (Auto) 0.6, Eosinophils # (Auto) 0.2, Basophils # (Auto) 0.1, Immature Granulocyte # (Auto) 0.0, Prothrombin Time 15.1, INR Comment 1.1, Activated Partial Thromboplast Time 124, Sodium Level 141, Potassium Level 4.3, Chloride Level 110, Carbon Dioxide Level 19, Anion Gap 12, Blood Urea Nitrogen 8, Creatinine 0.76, Estimat Glomerular Filtration Rate > 60, BUN/Creatinine Ratio 11, Glucose Level 115, Calcium Level 8.9, Corrected Calcium 9.1, Total Bilirubin 1.0, Aspartate Amino Transf (AST/SGOT) 47, Alanine Aminotransferase (ALT/SGPT) 64, Alkaline Phosphatase 119, Total Protein 6.2, Albumin 3.7 02/12/21 19:43: Troponin I < 0.028, B-Type Natriuretic Peptide 427.6 02/13/21 03:22: White Blood Count 5.3, Red Blood Count 3.99, Hemoglobin 12.5, Hematocrit 38, Mean Corpuscular Volume 95, Mean Corpuscular Hemoglobin 31, Mean Corpuscular Hemoglobin Concent 33, Red Cell Distribution Width 13.0, Platelet Count 146, Mean Platelet Volume 11.3, Immature Granulocyte % (Auto) 0, Neutrophils (%) (Auto) 48, Lymphocytes (%) (Auto) 39, Monocytes (%) (Auto) 8, Eosinophils (%) (Auto) 4, Basophils (%) (Auto) 1, Neutrophils # (Auto) 2.5, Lymphocytes # (Auto) 2.1, Monocytes # (Auto) 0.4, Eosinophils # (Auto) 0.2, Basophils # (Auto) 0.1, Immature Granulocyte # (Auto) 0.0, Activated Partial Thromboplast Time 66, Sodium Level 138, Potassium Level 3.8, Chloride Level 111, Carbon Dioxide Level 21, Anion Gap 6, Blood Urea Nitrogen 9, Creatinine 0.74, Estimat Glomerular Filtration Rate > 60, BUN/Creatinine Ratio 12, Glucose Level 111, Calcium Level 8.3, Corrected Calcium 8.9, Total Bilirubin 0.6, Aspartate Amino Transf (AST/SGOT) 32, Alanine Aminotransferase (ALT/SGPT) 47, Alkaline Phosphatase 106, Total Protein 5.5, Albumin 3.2 02/13/21 09:32: Activated Partial Thromboplast Time 81 02/13/21 15:38: Activated Partial Thromboplast Time 87 02/14/21 02:50: White Blood Count 7.8, Red Blood Count 3.91, Hemoglobin 12.3, Hematocrit 37, Mean Corpuscular Volume 96, Mean Corpuscular Hemoglobin 32, Mean Corpuscular Hemoglobin Concent 33, Red Cell Distribution Width 13.3, Platelet Count 145, Mean Platelet Volume 11.1, Immature Granulocyte % (Auto) 0, Neutrophils (%) (Auto) 69, Lymphocytes (%) (Auto) 20, Monocytes (%) (Auto) 10, Eosinophils (%) (Auto) 1, Basophils (%) (Auto) 0, Neutrophils # (Auto) 5.4, Lymphocytes # (Auto) 1.6, Monocytes # (Auto) 0.8, Eosinophils # (Auto) 0.1, Basophils # (Auto) 0.0, Immature Granulocyte # (Auto) 0.0, Sodium Level 137, Potassium Level 3.6, Chloride Level 107, Carbon Dioxide Level 20, Anion Gap 10, Blood Urea Nitrogen 7, Creatinine 0.73, Estimat Glomerular Filtration Rate > 60, BUN/Creatinine Ratio 10, Glucose Level 111, Calcium Level 8.4, Phosphorus Level 3.5, Magnesium Level 1.8 Discharge Home Medications: Active Scripts Active Prednisone 10 Mg Tab.ds.pk 10 Mg PO DAILY Take 6 tabs(60mg)daily,decrease by 1 tab(10MG)daily. Xanax Tablet (Alprazolam) 0.25 Mg Tab 0.25 Mg PO Q8H PRN Amiodarone HCl 200 Mg Tablet 200 Mg PO UD Take 2 tablet twice daily for 2 weeks then Take 1 tablet twice daily Entresto 24 mg-26 mg Tablet (Sacubitril/Valsartan) 1 Each Tablet 1 Tab PO BID Carvedilol 3.125 Mg Tablet 3.125 Mg PO BID Eliquis (Apixaban) 5 Mg Tablet 5 Mg PO BID Reported Proair Hfa (Albuterol Sulfate) 1 Puff Puff 2 Puff IH Q4H PRN Os-Ced 500+D3 Caplet (Calcium Carbonate/Vitamin D3) 1 Each Tablet 1 Each PO HS Fluticasone Propionate 16 Gm Gardner.susp 1-2 Sprays NSEACH HS PRN Zolpidem Tartrate 5 Mg Tablet 5 Mg PO HS PRN [Estradiol 10MCG/ML] 10MCG Cr 1 Ml VG WED 1 ML=4 CLICKS Advair 250-50 Diskus (Fluticasone/Salmeterol) 1 Each Blst.w.dev 1 Puff INH DAILY Montelukast Sodium 10 Mg Tablet 10 Mg PO HS Zyrtec (Cetirizine HCl) 10 Mg Tablet 10 Mg PO HS Aspirin 81 Mg Tab.chew 81 Mg PO HS Instructions to patient/family Please see electronic discharge instructions given to patient. Diagnosis/Problems Diagnosis/Problems (1) A-fib (2) SOB (shortness of breath) (3) COPD (chronic obstructive pulmonary disease) GRICELDA SONG DO February 14, 2021 10:30
== END 2021-02-14 10:27 | disposition home or self-care (01) ==
LOC: ICU 18:54 → UNDOADMOB 18:54 → ICU 19:15 → UNDODISOB 02-14 11:36
PROVIDERS: ADMIT Internal Medicine; ATTEND Internal Medicine
DX: I47.1 Supraventricular tachycardia (principal); I48.92 Unspecified atrial flutter; I48.91 Unspecified atrial fibrillation; I50.21 Acute systolic (congestive) heart failure; M19.90 Unspecified osteoarthritis, unspecified site; I11.0 Hypertensive heart disease with heart failure; I42.0 Dilated cardiomyopathy; I35.1 Nonrheumatic aortic (valve) insufficiency; J44.9 Chronic obstructive pulmonary disease, unspecified; G43.909 Migraine, unspecified, not intractable, without status migrainosus; Z79.82 Long term (current) use of aspirin; Z85.828 Personal history of other malignant neoplasm of skin; Z79.899 Other long term (current) drug therapy; Z87.891 Personal history of nicotine dependence; Z86.79 Personal history of other diseases of the circulatory system
CPT/HCPCS: 71045 ×2; 71275; 74175; 80048; 80053 ×2; 83735; 83880; 84100; 84484; 85025 ×3; 85027; 85610; 85730 ×2; 87081; 93005; 93312; 93320; 93325; 94640 ×4; G0378; G0379; 36415; 99211

== ENCOUNTER 2021-04-09 10:15 | Outpatient (CLI) | payer MEDICARE, OTHER ==
[~2021-04-09 10:15] MED LIST changes: +ALPR.25T PO; +AMIO200T6 PO; +APIX5TAB PO; +CALC1TAB29 PO; +CARV3.122 PO; +ESTRADIOL VG; +FLUT16SP22 NSEACH; +FLUT1DIS26 INH; +PRED10TA22 PO; +RT-ALBUINH IH; +SACU1TAB2 PO; +ZOLP5TAB7 PO
== END 2021-04-09 10:40 ==
LOC: SLEEP 10:15
PROVIDERS: ATTEND Nurse Practitioner Family
DX: G47.30 Sleep apnea, unspecified (principal); G47.50 Parasomnia, unspecified; G47.10 Hypersomnia, unspecified
CPT/HCPCS: G0399

== ENCOUNTER → 2021-07-14 | Outpatient (CLI) | payer MEDICARE, OTHER ==
--- NOTE | 2021-07-14 13:13 | Diagnostic Imaging Report ---
INDICATION: Routine screening. Comparison is made with prior mammogram 07/12/2020 and 07/04/2019. 2-D and 3-D bilateral screening mammography was performed with CAD. Both breasts are heterogeneously dense, limiting the sensitivity of mammography. There are benign calcifications in both breasts. No mass or malignant-appearing microcalcifications are seen. Axillae are unremarkable. IMPRESSION: BI-RADS Category 2 No mammographic features suspicious for malignancy are identified. ACR BI-RADS Category 2: Benign findings. Result letter will be mailed to the patient. Note: At least 10% of breast cancer is not imaged by mammography. Dictated by: Dictated on workstation # [id number]
== END ==
LOC: RAD 10:00
PROVIDERS: ATTEND Obstetrics & Gynecology
DX: Z12.31 Encounter for screening mammogram for malignant neoplasm of breast (principal)
CPT/HCPCS: 77063; 77067

== ENCOUNTER → 2022-07-20 | Outpatient (CLI) | payer MEDICARE, OTHER ==
[~2022-07-20] MED LIST changes: -AMIO200T6 PO; +AMIO200T65 PO; +MONT-40 PO; -MONT10TA32 PO
--- NOTE | 2022-07-20 14:41 | Diagnostic Imaging Report ---
INDICATION: Routine screening. COMPARISON: 07/14/2021 and 07/12/2020. TECHNIQUE: 2D and 3D bilateral screening mammography was performed with CAD. FINDINGS: Both breasts are heterogeneously dense, limiting the sensitivity of mammography. Scattered benign calcifications are noted. No mass or malignant-appearing appearing microcalcifications are seen. The axillae are unremarkable. IMPRESSION: No mammographic features suspicious for malignancy are identified. ACR BI-RADS Category 2: Benign findings. Result letter will be mailed to the patient. Note: At least 10% of breast cancer is not imaged by mammography. Dictated by: Dictated on workstation # [id number]
== END ==
LOC: RAD 10:15
PROVIDERS: ATTEND Obstetrics & Gynecology
DX: Z12.31 Encounter for screening mammogram for malignant neoplasm of breast (principal)
CPT/HCPCS: 77063; 77067

== ENCOUNTER → 2023-05-05 | Day surgery (SDC) | payer MEDICARE, OTHER ==
[~2023-05-05] VITALS: Ht 170.2 cm; Wt 59.4 kg
[~2023-05-05] MED LIST changes: +ALBU8.5H6 IH; +LIDOCAINE 1% INJ 20 ML VIAL INJ ONE; +LIDOCAINE 1% INJ 20 ML VIAL ONE; -RT-ALBUINH IH
[2023-05-05 09:54] VITALS: BP 180/80
--- NOTE | 2023-05-05 10:43 | Implantation of Loop Monitor ---
Implant of Loop Monitior IMPLANTATION OF LOOP MONITOR REPORT DATE OF PROCEDURE: 05/05/23 PREOP DIAGNOSIS: Paroxysmal atrial fibrillation POSTOP DIAGNOSIS: Paroxysmal atrial fibrillation PROCEDURE DETAILS: The patient is a 72 female with history of paroxysmal atrial fibrillation requiring long-term surveillance. Therefore implantable loop recorder was discussed and agreed with the patient. Informed consent was taken. All risks and complications were discussed at length. The patient was draped and prepped in the usual sterile fashion. Local anesthesia was lidocaine, which was given in the substernal area close to the 4th intercostal space. Loop monitor [employer] with serial number [id number] was implanted according to the protocol. Steri- Strips were placed at the end of the procedure. There were no complications and the patient tolerated the procedure well. ANESTHESIA: Local anesthesia with lidocaine. COMPLICATIONS: None CONTRAST/FLUOROSCOPY: None CONCLUSION: Successful implantation of loop monitor with no complication FINAL DIAGNOSIS: Paroxysmal atrial fibrillation Palpitation Hypertension JACKELINE DELGADO MD May 05, 2023 10:43
== END ==
LOC: CATH 09:30
PROVIDERS: ATTEND Internal Medicine Cardiovascular Disease
DX: I48.0 Paroxysmal atrial fibrillation (principal); E78.2 Mixed hyperlipidemia; I11.0 Hypertensive heart disease with heart failure; I50.21 Acute systolic (congestive) heart failure; R42 Dizziness and giddiness; I65.23 Occlusion and stenosis of bilateral carotid arteries; J44.9 Chronic obstructive pulmonary disease, unspecified; Z79.899 Other long term (current) drug therapy; Z87.891 Personal history of nicotine dependence; Z79.01 Long term (current) use of anticoagulants; Z98.890 Other specified postprocedural states
CPT/HCPCS: 33285; C1764

== ENCOUNTER 2023-06-11 05:31 | Outpatient (CLI) | payer MEDICARE, OTHER ==
[~2023-06-11] VITALS: Ht 172.7 cm; Wt 59.1 kg
[~2023-06-11 05:31] MED LIST changes: -LIDOCAINE 1% INJ 20 ML VIAL INJ ONE; -LIDOCAINE 1% INJ 20 ML VIAL ONE
[2023-06-14] MEDS ORDERED: LOSA25TA41 PO (09:50)
[2023-06-14] MEDS ORDERED: KRIL1CAP4 PO (09:50)
[2023-06-14] MEDS ORDERED: MTP25TSR PO (09:50)
== END 2023-06-14 12:34 | disposition home or self-care (01) ==
LOC: PREOP 05:31
PROVIDERS: ATTEND Otolaryngology Otolaryngology/Facial Plastic Surgery
DX: Z01.818 Encounter for other preprocedural examination (principal)

== ENCOUNTER 2023-06-18 07:30 | Day surgery (SDC) | payer MEDICARE, OTHER ==
[~2023-06-18] VITALS: Ht 170.2 cm; Wt 59.1 kg
[2023-06-18] VITALS (9 sets, daily range): BP systolic 94–174; BP diastolic 45–87
[~2023-06-18 07:30] MED LIST changes: +KRIL1CAP4 PO; +LOSA25TA41 PO; +MTP25TSR PO
[2023-06-18] MEDS ORDERED: LACTATED RINGERS 1,000 ML 1,000 ML IV PRN (08:00)
[2023-06-18] MEDS ORDERED: RIVA20TA PO (08:01)
[2023-06-18 08:30] LABS: BASOPHILS # (AUTO) 0.1 10^3/uL (0.0-0.1); BASOPHILS % (AUTO) 2 % (0-10); EOSINOPHILS # (AUTO) 0.2 10^3/uL (0.0-0.3); EOSINOPHILS % (AUTO) 4 % (0-10); HEMATOCRIT 43 % (35-52); HEMOGLOBIN 14.2 g/dL (11.5-16.0); LYMPHOCYTES # (AUTO) 1.3 10^3/uL (1.0-4.0); LYMPHOCYTES % (AUTO) 31 % (12-44); MEAN CORPUSCULAR HEMOGLOBIN 32 pg (25-34); MEAN CORPUSCULAR HGB CONC 33 g/dL (32-36); MEAN CORPUSCULAR VOLUME 97 fL (80-99); MEAN PLATELET VOLUME 10.5 fL (9.0-12.2); MONOCYTES # (AUTO) 0.4 10^3/uL (0.0-1.0); MONOCYTES % (AUTO) 10 % (0-12); NEUTROPHILS # (AUTO) 2.2 10^3/uL (1.8-7.8); NEUTROPHILS % (AUTO) 54 % (42-75); PLATELET COUNT 183 10^3/uL (130-400); WHITE BLOOD COUNT 4.1 10^3/uL (4.3-11.0)
[2023-06-18 08:52] LABS: EOSINOPHILS % (MANUAL) 3 %; LYMPHOCYTES % (MANUAL) 30 %; MONOCYTES % (MANUAL) 15 %; NEUTROPHILS % (MANUAL) 52 %; ROULEAUX SLIGHT
[2023-06-18] MEDS ORDERED: ONDANSETRON INJECTION 4 MG/2 ML (SDV) ONE (08:57)
[2023-06-18] MEDS ORDERED: MIDAZOLAM INJ 2 MG/2 ML VIAL ONE (08:57)
[2023-06-18] MEDS ORDERED: proPOfol INJECTION 200 MG/20 ML VIAL IV ONE (08:57)
[2023-06-18] MEDS ORDERED: fentaNYL INJECTION 100 MCG/2 ML VIAL ONE (08:57)
[2023-06-18] MEDS ORDERED: SEVOFLURANE (ULTANE) 15 ML INHAL SOLN ONE (08:57)
[2023-06-18] MEDS ORDERED: LIDOCAINE PF 2% 5 ML VIAL ONE (08:57)
[2023-06-18] MEDS ORDERED: LIDOCAINE/EPI 1%-1:200,000 (XYLOCAINE) 30 ML VIAL ONE (09:07)
--- NOTE | 2023-06-18 09:55 | Progress Note-Pre Operative ---
Pre-Operative Progress Note Date of Available H&P: Jun 18, 2023 Date H&P Reviewed: Jun 18, 2023 Time H&P Reviewed: 09:45 History & Physical: H&P Reviewed, Patient Examed, No changes noted Changes from last HP none Pre-Operative Diagnosis: Right Base of Tongue Mass/Swelling JERSEY PONCE MD Jun 18, 2023 09:55
--- NOTE | 2023-06-18 09:55 | Progress Note-Post Operative ---
Post-Operative Progess Note Surgeon (s)/Retail Services Professional (s) Surgeon JERSEY PONCE MD Retail Services Professional n/a Pre-Operative Diagnosis Right Base of Tongue Mass/Swelling Post-Operative Diagnosis same Post-Op Procedure Note Date of Procedure: Jun 18, 2023 Name of Procedure Performed: Direct LAryngoscopy with Bipsies of Right Base of Tongue Description & Findings Description and Findings: n/a Anesthesia Type get Estimated Blood Loss minimal Packing none. Specimen(s) collected/removed right base of tongue biopsies JERSEY PONCE MD Jun 18, 2023 09:55
[2023-06-18] MEDS ORDERED: HYDROcodone/ACETAMINOPHEN 5 MG/325 MG TABLET PO PRN (10:00)
[2023-06-18] MEDS ORDERED: PROMETHAZINE INJ 25 MG/ML VIAL IV PRN (10:00)
[2023-06-18] MEDS ORDERED: SUCCINYLCHOLINE INJ 20 MG/1 ML 10 ML VIAL ONE (10:02)
--- NOTE | 2023-06-18 10:28 | Anesthesia-General Post-Op ---
General Patient Condition Mental Status/LOC: Same as Preop Cardiovascular: Satisfactory Nausea/Vomiting: Absent Respiratory: Satisfactory Pain: Controlled Complications: Absent Post Op Complications Complications None Follow Up Care/Instructions Patient Instructions None needed. Anesthesia/Patient Condition Patient Condition Patient is doing well, no complaints, stable vital signs, no apparent adverse anesthesia problems. No complications reported per nursing. OMARI MONTERROSO CRNA Jun 18, 2023 10:28
[2023-06-18] MEDS ORDERED: ONDANSETRON INJECTION 4 MG/2 ML (SDV) IVP PRN (10:30)
[2023-06-18] MEDS ORDERED: MEPERIDINE INJ 50 MG/ML VIAL IVP ONE (10:30)
[2023-06-18] MEDS ORDERED: fentaNYL INJECTION 100 MCG/2 ML VIAL IVP ONE (10:30)
[2023-06-18] MEDS ORDERED: morphine INJ 10 MG/ML 1ML (SYR OR VIAL) IVP ONE (10:30)
[2023-06-18] MEDS ORDERED: LIDOCAINE/EPI 1%-1:200,000 (XYLOCAINE) 30 ML VIAL INJ ONE (10:37)
[2023-06-18] MEDS ORDERED: ACHD5005 PO (11:17)
== END 2023-06-18 12:07 ==
LOC: SDC 07:30
PROVIDERS: ATTEND Otolaryngology Otolaryngology/Facial Plastic Surgery
DX: K14.8 Other diseases of tongue (principal); J02.9 Acute pharyngitis, unspecified; Z87.891 Personal history of nicotine dependence
CPT/HCPCS: 36415; 85007; 85027; 87081; 93005

== ENCOUNTER → 2023-07-05 | Outpatient (CLI) | payer MEDICARE, OTHER ==
[~2023-07-05] MED LIST changes: +ACHD5005 PO; +CATHETER FLUSH 10 ML SYR IVP PRN; +RIVA20TA PO
[2023-07-05 09:46] VITALS: BP 167/69
--- NOTE | 2023-07-05 11:45 | Cardiology Stress Test Report ---
Stress Test Report Date of Procedure/Referring: Date of Procedure: Jul 05, 2023 PCP Shakeel Zamora DO Admitting Physician Admitting Physician: Attending Physician: Melissa Yap Baseline Heart Rate: 59 Baseline Blood Pressure: Blood Pressure Systolic: 167 Blood Pressure Diastolic: 69 Vital Signs Date Time Temp Pulse Resp B/P (MAP) Pulse Ox O2 Delivery O2 Flow Rate FiO2 07/05/23 09:46 59 167/69 (101) Baseline Vital Signs Vital Signs Date Time Temp Pulse Resp B/P (MAP) Pulse Ox O2 Delivery O2 Flow Rate FiO2 07/05/23 09:46 59 167/69 (101) Baseline EKG: Baseline EKG: NSR Summary: After explaining the procedure and details to the patient, she signed the consent and was brought to the stress nuclear laboratory. Patient exercised on standard Tariq protocol, EKG, heart rate and blood pressure were monitored continuously, resting and stress doses of radio tracer were injected, imaging was acquired and reviewed in the short axis, horizontal long axis and vertical long axis views Patient was able to exercise for a total of 6.50 minutes on Tariq protocol, METs 7.7 Maximum heart rate 144 Maximum blood pressure 189/77 Stress EKG, Minimal nondiagnostic changes Recovery EKG, Return to baseline TID: 1.12 SSS: 0 SDS: 0 EF: 64 Conclusion: Fair exercise tolerance for 6 minutes and 50 seconds on standard Tariq protocol, 7.7 METS achieving 97% of maximal expected heart rate Appropriate heart rate response to exercise with occasional PVCs noted during exercise, nondiagnostic EKG changes with exercise return to baseline during recovery Hypertensive response to exercise with peak blood pressure 189/77 return to baseline during recovery No significant ischemia or infarction noted on SPECT images Normal left ventricular size, ejection fraction 64% Copy Copies To 1: SHAKEEL ZAMORA BASHAR J MD Jul 05, 2023 11:45
== END ==
LOC: CARD 07:46
PROVIDERS: ATTEND Physician Assistant
DX: I10 Essential (primary) hypertension (principal); I25.10 Atherosclerotic heart disease of native coronary artery without angina pectoris
CPT/HCPCS: 78452; 93017; A9502

== ENCOUNTER → 2023-07-22 | Outpatient (CLI) | payer MEDICARE, OTHER ==
[~2023-07-22] MED LIST changes: -CATHETER FLUSH 10 ML SYR IVP PRN
--- NOTE | 2023-07-22 14:08 | Diagnostic Imaging Report ---
Indication: Routine screening. Comparison is made with prior mammograms from 07/20/2022 and 07/14/2021. 2-D and 3-D bilateral screening mammography was performed CAD. Both breasts are heterogeneously dense, limiting the sensitivity of mammography. The parenchymal pattern is stable. There are scattered benign calcifications. No mass or malignant-appearing microcalcifications are seen. Axillae are unremarkable. IMPRESSION: BI-RADS Category 2 No mammographic features suspicious for malignancy are identified. ACR BI-RADS Category 2: Benign findings. Result letter will be mailed to the patient. Note: At least 10% of breast cancer is not imaged by mammography. Dictated by: Dictated on workstation # [id number]
== END ==
LOC: RAD 10:37
PROVIDERS: ATTEND Nurse Practitioner Women's Health
DX: Z12.31 Encounter for screening mammogram for malignant neoplasm of breast (principal)
CPT/HCPCS: 77063; 77067